=== PATIENT | female | born 1935 | race Caucasian/White ===

== ENCOUNTER 2019-10-04 15:14 | Inpatient (IN) | payer MEDICARE, OTHER ==
[~2019-10-04 15:14] MED LIST: Iopamidol-370 76% 500 ML 1 ML ONE
[2019-10-04 16:04] LABS: #Eosinphils 0.1 thou/uL (0.0-0.7); #Lymphocytes 1.5 thou/uL (1.20-3.40); #Monocytes 0.8 thou/uL (0.11-0.59); #Neutrophils 6.9 thou/uL (1.40-6.50); %Basophils 0.1 % (0.0-1.0); %Eosinophils 1.4 % (0.0-10.0); %Lymphocytes 15.6 % (21.0-51.0); %Monocytes 8.4 % (0.0-10.0); %Neutrophils 74.4 % (42.0-75.0); Hemoglobin 9.6 g/dL (12.0-16.0); Mean Corpuscular HGB CONC 31.7 g/dL (32.0-36.0); Mean Corpuscular Hemoglobin 32.1 pg (27.0-31.0); Mean Platelet Volume 6.2 fL (7.4-10.4); Platelet Count 405 thou/uL (130-400); RBC Distribution Width 16.7 % (11.5-14.5); White Blood Cell (WBC) Count 9.3 thou/uL (4.8-10.8)
[2019-10-04 16:14] LABS: INR-International Normal Ratio 11.6; PTT 128.5 sec (22.9-36.1)
[2019-10-04 16:18] LABS: Bilirubin Negative (Negative); Blood, Urine 1+ (Negative); Clarity Turbid (Clear); Glucose, Urine (Dipstick) Normal (Negative); Ketone, Urine Negative (Negative); Leukocyte 500 Leu/uL (Negative); Nitrite Negative (Negative); Protein, Urine (Dipstick) Negative (Neg-Trace); Squamous Epithelial None Seen HPF (0-3); WBC/HPF Greater than 50 HPF (0-3); pH, Urine 6.5 (5.0-9.0)
[2019-10-04 16:25] LABS: ALT (SGPT) 17 U/L (8-55); AST (SGOT) 26 U/L (5-34); Albumin 3.3 g/dL (3.4-4.8); Alkaline Phosphatase 123 U/L (40-110); Anion Gap 13 mmol/L (10-20); BUN (Urea Nitrogen) 13 mg/dL (9.8-20.1); Bilirubin, Total 1.3 mg/dL (0.2-1.2); Calc. Creatinine Clearance 0 mL/min (70-130); Calcium 9.3 mg/dL (7.8-10.44); Carbon Dioxide 27 mmol/L (23-31); Chloride 100 mmol/L (98-107); Estimated GFR-MDRD 71; Glucose 120 mg/dL (83-110); Potassium 3.6 mmol/L (3.5-5.1); Protein, Total 6.3 g/dL (6.0-8.3); Sodium 136 mmol/L (136-145)
[2019-10-04 16:27] LABS: Bacteria/HPF 2+ HPF (None Seen); Yeast-Budding 1+ HPF (None Seen)
[2019-10-04] MEDS ORDERED: Acetaminophen 325 MG TAB ONE (16:27)
[2019-10-04] MEDS ORDERED: Cefepime 2 GM VIAL ONE (16:27)
[2019-10-04] MEDS ORDERED: Vancomycin HCl 2.5 GM in Sodium Chloride 0.9% 500 ML IVPB ONE (16:30)
[2019-10-04] MEDS ORDERED: Acetaminophen 325 MG TAB PO SCH (16:30)
[2019-10-04] MEDS ORDERED: Cefepime 2 GM in Sodium Chloride 0.9% 100 ML IVPB SCH (16:30)
[2019-10-04] MEDS ORDERED: Phytonadione 10 MG/ML AMP PO SCH (16:30)
--- NOTE | 2019-10-04 17:47 | CT ---
EXAM: CTA Angio Aort Bilat Rnoff W PROVIDED CLINICAL HISTORY: Right lower extremity wound and pain. COMPARISON: None FINDINGS: CTA abdomen and pelvis: Median sternotomy wires are present. Postoperative changes related to aortic valve replacement are se en. The heart is mildly enlarged. Small right pleural effusion is present with associated passive atelectasis. Patchy parenchymal densities are seen at the left lung base which may represent atelecta sis as well. Limited evaluation of the abdomen due to patient's arms overlying the abdomen resulting in artifact. Postcholecystectomy changes are seen. The liver, spleen, pancreas, bilateral adrenal glands, and kidneys demonstrate a grossly normal CT ap pearance allowing for artifact. Gibbons catheter is present in the urinary bladder which is decompressed. Uterus has a grossly normal C T appearance for patient's age. The ascending colon is filled with gas and fluid and mildly distended. Small amount retained fecal ma terial seen throughout the remainder the colon with moderate amount retained fecal material seen in the rectum. There is presacral edema and inflammatory changes seen. This is overall nonspecific, but stercoral colitis cannot be entirely excluded. The abdominal aorta is normal in caliber without evidence of an aortic dissection. Diffuse atheroscle rotic vascular calcifications are seen involving the abdominal aorta and involving the iliac arteries. The iliac arteries are patent. There is suboptimal evaluation of the origins of the celiac and superior mesenteric arteries due to a rtifact in the upper abdomen and vascular calcifications at the origins of these vessels. However, the celiac artery does appear patent. There is suggestion of mild to moderate narrowing involving the origin and proximal superior mesenteric artery due to atherosclerotic plaque. The inferior mesenteric artery appears patent. There is suboptimal evaluation of the renal arteries again related to significant artifact and vascular calcifications. There is at least a mild degree of narrowing involving each proximal renal artery greater on the left. Left convex scoliosis thoracolumbar spine is present with multilevel degenerative changes noted. CT angiogram lower extremities with runoff: Right lower extremity: In the right gluteal region, there are lobulated mildly increased density areas seen with measurement of 6.7 cm craniocaudal x9.8 cm transverse x8.3 cm AP with interspersed regions of fat. This may be related to areas of hemorrhage/hematoma in this region. Correlation for recent trauma is suggested. A t the level of the knee joint and inferior to this region, there is plaque-like area of what is thought to be skin thickening and edema involving the right lateral and posterolateral aspect of the soft tissues at the level the knee joint and extending inferiorly. There also appears to be metallic densities laterally related to skin clips. The soft tissue thickening extends inferiorly to the level of the distal calf with a soft tissue wound with gas and lower density area seen at the level of the distal calf posterolaterally likely due to patient's known wound. The right common femoral, profunda femoral, and superficial femoral arteries are patent. There is thr ee-vessel runoff to the right lower extremity with dorsalis pedis artery as well as posterior tibial artery seen at the foot. Left lower extremity: The left common femoral, profunda femoral, superficial femoral, and popliteal arteries are patent. Th e entire left lower extremity is unable to be included in the field of view which limits evaluation of a portion of the most proximal anterior tibial artery. There are otherwise appears to be three-ves shai runoff to the left lower extremity. Mild subcutaneous edema is seen at the level of the distal calf and involving the foot. IMPRESSION: 1. Soft tissue defect/wound at the level of the posterolateral lower calf with soft tissue thickening and edema involving the right lateral and posterolateral right lower extremity again at the level of the knee joint and extending inferiorly to the calf. Findings are worrisome for infection. 2. Although there is incomplete visualization of a portion of the left anterior tibial artery, there is otherwise three-vessel runoff to the bilateral lower extremities. 3. Limited evaluation of the origin of the mesenteric vessels and renal arteries as described above d ue to artifact. 4. Small right pleural effusion and atelectasis with probable atelectasis left lung base. 5. Cardiomegaly. 6. Presacral edema and inflammatory changes with moderate amount retained fecal material seen in the rectum. Presacral inflammatory changes are overall nonspecific, but stercoral colitis cannot be excluded. 7. Lobulated areas of mild increased density right gluteal region which could be related to areas of hemorrhage. Correlation for recent injury/trauma is recommended.
[2019-10-04] MEDS ORDERED: Sodium Chloride 0.9% 1,000 ML IV SCH (19:57)
[2019-10-04] MEDS ORDERED: Acetaminophen 325 MG TAB PO PRN (19:57)
[2019-10-04] MEDS ORDERED: Furosemide 20 MG TAB PO SCH (21:15)
[2019-10-04] MEDS ORDERED: HumaLOG 300 UNITS/3 ML VIAL SC PRN (21:21)
[2019-10-04] MEDS ORDERED: Dextrose 5% in Water 1,000 ML IV PRN (21:21)
[2019-10-04] MEDS ORDERED: Dextrose 50% Abboject 50 ML SYRINGE SLOW IVP PRN (21:21)
[2019-10-04 23:00] VITALS: BMI 51.0
[2019-10-05] MEDS ORDERED: traZODone HCl 50 MG TAB PO SCH (01:15)
--- NOTE | 2019-10-05 02:37 | HP ---
CHIEF COMPLAINT: Bleeding from right lower extremity wound. HISTORY OF PRESENT ILLNESS: This patient is an 84-year-old female who has some dementia and is not able to give a clear history. Fortunately, there are some records in her chart that indicate that she has been at [facility] recently. The patient has a history of chronic atrial fibrillation and mechanical aortic valve and is on warfarin routinely. The patient apparently had some type of bleeding problem related to that right lower extremity with some type of hematoma. The general surgeons had some difficulty managing it and Vascular Surgery was called in and ultimately, she was taken for debridement. The plan apparently was to try to get her to rehab, but family took her home. It sounds like she has had some persistent oozing from this wound since she got home and she somehow got back to the emergency department today, and there was some concern for possible infection. It seems as though the patient might have had a syncopal episode and some traumatic injury to the right lower extremity that had originated all of this. It suggests that occurred while at our facility, but I do not currently find any records regarding an admission here. Nonetheless, the patient again is unable to give any significant additional history. PAST MEDICAL HISTORY: Notable for chronic atrial fibrillation, diabetes mellitus, hyperlipidemia, hypothyroidism, hypertension, mechanical aortic valve, morbid obesity, and possibly some hypoventilation of obesity syndrome. PAST SURGICAL HISTORY: Not known other than the surgery mentioned above for the right lower extremity and the aortic valve surgery. FAMILY HISTORY: The patient cannot recall any significant family history. SOCIAL HISTORY: Sounds like she tried cigarettes briefly at one point, otherwise a nonsmoker, nondrinker, and nondrug user. She is , sounds like she is living at home with family. CURRENT MEDICATIONS: Include: 1. Metformin 500 mg one p.o. daily. 2. Levothyroxine 100 mcg p.o. daily. 3. Lasix 20 mg daily. 4. Metoprolol ER 25 mg one p.o. daily. 5. Atorvastatin 80 mg one p.o. daily. 6. Warfarin dosing regimen varies daily, but is unclear in the notes. 7. Symbicort inhaler two inhalations b.i.d. 8. Tylenol p.r.n. 9. BuSpar 5 mg "as needed.". PHYSICAL EXAMINATION: VITAL SIGNS: Initially blood pressure 114/76, pulse 89, respirations 18, temperature is 98.6, and O2 saturation 95% on room air. GENERAL APPEARANCE: The patient is morbidly obese. She is very awake and alert and animated. HEENT: PERRL. No OP lesions. NECK: Supple and symmetric. HEART: Irregularly irregular with no murmurs, but there is a mechanical component noted. LUNGS: Clear to auscultation bilaterally with good chest wall expansion and air exchange. ABDOMEN: Soft, nontender, and nondistended. Positive bowel sounds. No masses. No organomegaly. EXTREMITIES: There is no significant cyanosis or clubbing. The right lower extremity has a large area on the posterolateral right calf that is oozing, dark old appearing blood onto a Chux pad persistently, but not in significant high volume. There are some general inflammatory changes with warmth associated with this. PSYCHIATRIC: The patient has animated affect, but otherwise normal behavior. NEUROLOGIC: No focal defects. The patient does appear to have some dementia. She did not recall meeting my medical student 20 minutes prior to revisiting her this evening. LABORATORY DATA: White count 9.3, hemoglobin 9.6, platelets 405. PT 88, INR 11.6, PTT 128.5. Sodium 136, potassium 3.6, chloride 100, CO2 of 27, BUN 13, creatinine 0.77, glucose 120, lactic acid 1.9. Total bilirubin 1.3, alkaline phosphatase 123, AST 26, ALT 17. Urinalysis is turbid with 1+ blood, 500 leukocytes, 11 to 20 red cells, greater than 50 white cells, bacteria and yeast are noted (of note, the patient does have chronic indwelling Gibbons catheter). A CTA of the aorta with runoff was performed in the emergency department that shows soft tissue defect in the right posterior lateral calf as noted on physical exam. There is some presacral edema and inflammatory changes with a moderate amount of fecal material in the rectum, could be some stercoral colitis and some lobulated areas of mild increased density in the right gluteal region, possibly representing some bruising or hematoma there. IMPRESSION AND PLAN: 1. Right lower extremity wound. The patient apparently had originally fallen, created a wound in this area that created some hematoma and bleeding, that could not easily be managed. Vascular Surgery was consulted and Dr. Knox performed a debridement of this area. Unfortunately, it continues to ooze, which is partially related to the patient's chronic anticoagulation, which is poorly controlled at this time. The vascular surgeon was consulted from the emergency department and will see the patient in the morning. In the meantime, we will try to reverse her anticoagulation to the degree that we can safely do so. It is unclear if this area is infected. She did receive antibiotics in the emergency department. It is hard to know if this is just some inflammatory changes due to the ongoing wound will take surgeries. Assessment in the morning determine whether we need to continue with ongoing antibiotics. She seems to be afebrile and she does not have leukocytosis. 2. Supratherapeutic INR. The patient is on a complex warfarin regimen. She is highly supratherapeutic, right now she did receive vitamin K in the emergency department. Other than oozing from this wound, she does not appear to have any evidence of significant bleeding; although, there is some evidence she may have had some hematomas in the right buttock on her scan. Because of her valve, I cannot safely entirely reverse her, so if she does get down subtherapeutic we would likely need to cover with some Lovenox, although at some point it may have to be drastically reduced in order to address this wound on her leg. 3. Diabetes mellitus. We will continue with her metformin. Continue Accu- Cheks. 4. Hypothyroidism. Continue with the levothyroxine. 5. Hyperlipidemia. Continue atorvastatin. 6. Bacteriuria. She has a Gibbons, but likely only because of the wound and general debility. She was able to walk in August, but has not been able to since. She has no fever and no leukocytosis. Addendum: I had a long conversation with the patient's daughter. She knows her mother has very clearly stated that she is DNR. That will be ordered. I also updated her on the situation. This will be a challenging situation given her debility, obesity, dementia and the need to continue with the anticoagulation. Answered all of her questions. She did confirm that her mother had been staying in a private retirement situation prior to this admission. Job ID: [id number] MTDD
[2019-10-05] MEDS ORDERED: Cefepime 2 GM in Sodium Chloride 0.9% 100 ML IVPB SCH (05:00)
[2019-10-05] MEDS: Levothyroxine Sodium 100 MCG TAB PO SCH (05:09)
[2019-10-05 05:57] LABS: #Eosinphils 0.2 thou/uL (0.0-0.7); #Lymphocytes 1.7 thou/uL (1.20-3.40); #Monocytes 0.7 thou/uL (0.11-0.59); #Neutrophils 5.4 thou/uL (1.40-6.50); %Basophils 0.2 % (0.0-1.0); %Eosinophils 2.2 % (0.0-10.0); %Monocytes 9.2 % (0.0-10.0); %Neutrophils 67.4 % (42.0-75.0); Hemoglobin 9.7 g/dL (12.0-16.0); Mean Corpuscular HGB CONC 30.3 g/dL (32.0-36.0); Mean Corpuscular Hemoglobin 30.6 pg (27.0-31.0); Mean Platelet Volume 6.4 fL (7.4-10.4); Platelet Count 410 thou/uL (130-400); Red Blood Cell (RBC) Count 3.18 mill/uL (4.20-5.40)
[2019-10-05] MEDS: Mometasone 200 MCG/Formoterol 5 MCG 120 PUFF INHALER INH SCH ×2 (07:16→19:32)
[2019-10-05] MEDS ORDERED: Succinylcholine Chloride 20 MG/ML 10 ml SYRINGE FS ONE (09:26)
[2019-10-05] MEDS ORDERED: PHENYLEPHRINE-NS 100 MCG/ML 10 ML SYRINGE ONE (09:26)
[2019-10-05] MEDS ORDERED: PROPOFOL 200 MG/20 ML VIAL ONE (09:26)
[2019-10-05] MEDS ORDERED: Lidocaine 1% PF 5 ML VIAL ONE (09:26)
[2019-10-05] MEDS: metFORMIN 500 MG TAB PO SCH (09:28)
[2019-10-05] MEDS: busPIRone HCl 5 MG TAB PO SCH ×2 (09:28→19:38)
[2019-10-05 10:15] LABS: INR-International Normal Ratio 3.9; Prothrombin Time 37.7 sec (12.0-14.7)
[2019-10-05 10:16] LABS: PTT 88.3 sec (22.9-36.1)
--- NOTE | 2019-10-05 12:54 | CON ---
DATE OF CONSULTATION: 10/05/2019 HISTORY OF PRESENT ILLNESS: Ms. Hernández was in at [facility] after a fall where she ended up on the floor and was found in a large pool of blood. She had a large hematoma subcutaneously in her right leg below the knee, which required debridement, evacuation of hematoma, and she had a compression bandage placed in the hospital. She would not consent to going back to a penitentiary facility; therefore, her family took her home and she re-presented through the emergency department last night with continued ooze from her leg. She had instructions at the time of discharge for her home health nurse to place a compression type dressing and wrap with an Stephen bandage. She arrived with no dressing on her leg and significant slough of her skin. She is going to need debridement of all of the necrosed skin and then subsequent wound VAC placement. I have discussed this with her and we will plan for surgery today. PAST MEDICAL HISTORY: 1. History of mechanical aortic valve replacement, on Coumadin. 2. Chronic atrial fibrillation. 3. Diabetes mellitus. 4. Dyslipidemia. 5. Hypothyroidism. 6. Hypertension. 7. Morbid obesity. SOCIAL HISTORY: She does not use tobacco. MEDICATIONS: Noted. ALLERGIES: LATEX. PHYSICAL EXAMINATION: GENERAL: This is a morbidly obese woman, resting on the medical unit. VITAL SIGNS: Temperature is 98.2, pulse is 87, blood pressure is 92/64. LUNGS: Clear bilaterally. HEART: Rhythm is irregularly irregular. ABDOMEN: Obese. EXTREMITIES: The right lower extremity is as above. LABORATORY DATA: Her hemoglobin is 9.7, platelet count is 410,000. Creatinine is 0.77, potassium 3.6. PT/INR is 11.6 at admission. ASSESSMENT AND PLAN: Large wound to the right lower extremity, which has been inadequately cared for at home. She will need debridement and subsequent wound VAC placement. She does need Coumadin with her valve, but I would not give her any Coumadin for the foreseeable future until her INR is corrected and we have a better handle on the wound. Job ID: [id number]
[2019-10-05] MEDS ORDERED: Ondansetron HCl/PF 4 MG/2 ML Vial IVP PRN (13:14)
[2019-10-05] MEDS ORDERED: Fentanyl 100 MCG/2 ML VIAL ONE (13:15)
--- NOTE | 2019-10-05 15:09 | PDOC.HOSPP ---
- Subjective Encounter Date: 10/05/19 Subjective: She was seen this morning. She was doing quite well. She was delighted to hear that she would be anesthetized for her surgery on her leg. Otherwise she had no major complaints other than she was hungry. - Objective Vital Signs & Weight: Vital Signs (12 hours) Temp Pulse Resp BP Pulse Ox 10/05/19 14:11 97.0 F L 97 18 136/82 93 L 10/05/19 08:00 94 L 10/05/19 07:43 98.2 F 87 20 92/64 94 L 10/05/19 07:16 79 16 97 10/05/19 05:46 98.1 F 91 20 107/75 95 Weight Admit Weight 306 lb 7.08 oz Weight 306 lb 7.08 oz I&O: 10/04/19 10/05/19 10/06/19 06:59 06:59 06:59 Intake Total 600 Output Total 550 Balance 50 Result Diagrams: 10/05/19 05:44 10/04/19 15:56 Additional Labs: Accuchecks 10/05/19 10/05/19 11:30 05:49 POC Glucose 130 H 141 H Hospitalist ROS - Medication Medications: Active Medications Generic Name Dose Route Start Last Admin Trade Name Freq PRN Reason Stop Dose Admin Buspirone HCl 5 mg 10/05/19 09:00 10/05/19 09:28 Buspar PO 5 mg BID SARTHAK Administration Levothyroxine Sodium 100 mcg 10/05/19 06:00 10/05/19 05:09 Synthroid PO 100 mcg 0600 SARTHAK Administration Metformin HCl 500 mg 10/05/19 08:00 10/05/19 09:28 Glucophage PO 500 mg QAM-WM SARTHAK Administration Metoprolol Succinate 25 mg 10/05/19 09:00 10/05/19 09:30 Toprol Xl PO 25 mg DAILY SARTHAK Administration Mometasone Furoate/Formoterol Fumar 2 puff 10/05/19 06:30 10/05/19 07:16 Dulera 200 Mcg/5 Mcg Inhaler INH 2 puff BID-RT SARTHAK Administration Sodium Chloride 10 ml 10/04/19 21:00 10/05/19 09:28 Flush - Normal Saline IVF 10 ml Q12HR SARTHAK Administration - Exam General Appearance: NAD, awake alert Heart: RRR, no murmur, no gallops, no rubs, normal peripheral pulses Respiratory: CTAB, no wheezes, no rales, no ronchi, normal chest expansion, no tachypnea, normal percussion Gastrointestinal: soft, non-tender, non-distended, normal bowel sounds, no palpable masses, no hepatomegaly, no splenomegaly, no bruit Extremities: no cyanosis, no clubbing Extremities - other findings: RLE with large area on the R post lat calf superficial slough. Less oozing Musculoskeletal: generalized weakness Psychiatric: normal affect, not oriented Hosp A/P (1) Wound of right leg Code(s): S81.801A - UNSPECIFIED OPEN WOUND, RIGHT LOWER LEG, INITIAL ENCOUNTER Status: Acute (2) Atrial fibrillation Code(s): I48.91 - UNSPECIFIED ATRIAL FIBRILLATION Status: Chronic (3) Status post mechanical aortic valve replacement Code(s): Z95.2 - PRESENCE OF PROSTHETIC HEART VALVE Status: Chronic (4) Morbid obesity Code(s): E66.01 - MORBID (SEVERE) OBESITY DUE TO EXCESS CALORIES Status: Chronic (5) Supratherapeutic INR Code(s): R79.1 - ABNORMAL COAGULATION PROFILE Status: Acute (6) Diabetes mellitus Code(s): E11.9 - TYPE 2 DIABETES MELLITUS WITHOUT COMPLICATIONS Status: Chronic Qualifiers: Diabetes mellitus type: type 2 (7) Hypothyroidism Code(s): E03.9 - HYPOTHYROIDISM, UNSPECIFIED Status: Chronic (8) Bacteriuria Code(s): R82.71 - BACTERIURIA Status: Acute - Plan Right leg wound: Discussed the case with Dr. Knox today. He was taken the patient to debride the area. Once it is debrided to apply a wound VAC. We agree there is no evidence of infection or need for antibiotics. Supratherapeutic INR: Patient received some vitamin D last night and her INR is down to 3.9. Will keep her off of warfarin until we have a more therapeutic INR or we get adequate clotting of the right lower extremity wound. Mechanical aortic valve: Patient does need to be on anticoagulation. However, currently we are facing a wound in her right leg that continues to ooze and therefore warfarin is currently being held. 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 Does not appear she has any bladder issues but mobility issues. Once we get her through the surgery and have the wound VAC in place will need to investigate the possibility of discontinuing the Gibbons. Do not suspect she has active infection. Suspect she is simply colonized. She has no fever or white count. Hypothyroidism: Continue home medications. Morbid obesity: Patient has challenges with mobility because of this. Dementia: Patient is typically pleasant. Had a bit of mild agitation last evening. Certainly complicates the wound care.
[2019-10-05] MEDS ORDERED: HYDROcodone/Acetaminophen 5/325 mg Tablet PO PRN (16:08)
[2019-10-05] MEDS ORDERED: Acetaminophen 325 MG TAB PO PRN (16:10)
[2019-10-05] MEDS: Atorvastatin Calcium 40 MG TAB PO SCH (19:38)
[2019-10-05] MEDS: HYDROcodone/Acetaminophen 5/325 mg Tablet PO PRN (19:38)
[2019-10-06] MEDS: Levothyroxine Sodium 100 MCG TAB PO SCH (05:38)
[2019-10-06] MEDS: busPIRone HCl 5 MG TAB PO SCH ×2 (08:41→20:17)
[2019-10-06] MEDS: metFORMIN 500 MG TAB PO SCH (08:41)
--- NOTE | 2019-10-06 14:02 | PDOC.HOSPP ---
- Subjective Encounter Date: 10/06/19 Subjective: Patient herself reports she is doing quite well today. She is pleased with how well she is doing considering she just had surgery. She has no other complaints. We discussed removing the Gibbons catheter and she is amenable to that. - Objective Vital Signs & Weight: Vital Signs (12 hours) Temp Pulse Resp BP Pulse Ox 10/06/19 12:00 97 F L 88 18 120/71 93 L 10/06/19 08:00 98 F 88 18 118/79 96 10/06/19 04:45 97.8 F 90 18 112/79 94 L Weight Admit Weight 306 lb 7.08 oz Weight 306 lb 7.08 oz I&O: 10/05/19 10/06/19 10/07/19 06:59 06:59 06:59 Intake Total 600 1780 Output Total 550 875 Balance 50 905 Result Diagrams: 10/05/19 05:44 10/04/19 15:56 Additional Labs: Accuchecks 10/06/19 10/06/19 10/05/19 11:39 05:02 20:33 POC Glucose 148 H 129 H 187 H 10/05/19 15:45 POC Glucose 178 H Hospitalist ROS - Medication Medications: Active Medications Generic Name Dose Route Start Last Admin Trade Name Freq PRN Reason Stop Dose Admin Acetaminophen 650 mg 10/05/19 16:10 10/06/19 05:40 Tylenol PO 650 mg Q6H PRN Administration Fever/Mild Pain (1-3) Hydrocodone Bitart/Acetaminophen 2 tab 10/05/19 16:08 10/05/19 19:38 [place] 5/325 PO 2 tab Q4H PRN Administration Severe Pain (7-10) Atorvastatin Calcium 80 mg 10/05/19 21:00 10/05/19 19:38 Lipitor PO 80 mg HS SARTHAK Administration Buspirone HCl 5 mg 10/05/19 09:00 10/06/19 08:41 Buspar PO 5 mg BID SRATHAK Administration Levothyroxine Sodium 100 mcg 10/05/19 06:00 10/06/19 05:38 Synthroid PO 100 mcg 0600 SARTHAK Administration Metformin HCl 500 mg 10/05/19 08:00 10/06/19 08:41 Glucophage PO 500 mg QAM-WM SARTHAK Administration Metoprolol Succinate 25 mg 10/05/19 09:00 10/06/19 08:41 Toprol Xl PO 25 mg DAILY SARTHAK Administration Mometasone Furoate/Formoterol Fumar 2 puff 10/05/19 06:30 10/05/19 19:32 Dulera 200 Mcg/5 Mcg Inhaler INH 2 puff BID-RT SARTHAK Administration Sodium Chloride 10 ml 10/04/19 21:00 10/06/19 08:42 Flush - Normal Saline IVF 10 ml Q12HR SARTHAK Administration - Exam General Appearance: NAD, awake alert General - other findings: Morbidly obese Eye: PERRL Heart: no murmur, no gallops, no rubs, normal peripheral pulses, irregular Respiratory: CTAB, no wheezes, no rales, no ronchi, normal chest expansion, no tachypnea, normal percussion Gastrointestinal: soft, non-tender, non-distended, normal bowel sounds, no palpable masses, no hepatomegaly, no splenomegaly, no bruit Extremities: no cyanosis, no clubbing, no edema Skin - other findings: R lateral calf with wound VAC. Dorsum of L hand with 2 x 4 cm scabbed area Musculoskeletal: normal tone, generalized weakness Psychiatric: normal affect, oriented to person Hosp A/P (1) Wound of right leg Code(s): S81.801A - UNSPECIFIED OPEN WOUND, RIGHT LOWER LEG, INITIAL ENCOUNTER Status: Acute (2) Atrial fibrillation Code(s): I48.91 - UNSPECIFIED ATRIAL FIBRILLATION Status: Chronic (3) Status post mechanical aortic valve replacement Code(s): Z95.2 - PRESENCE OF PROSTHETIC HEART VALVE Status: Chronic (4) Morbid obesity Code(s): E66.01 - MORBID (SEVERE) OBESITY DUE TO EXCESS CALORIES Status: Chronic (5) Supratherapeutic INR Code(s): R79.1 - ABNORMAL COAGULATION PROFILE Status: Acute (6) Diabetes mellitus Code(s): E11.9 - TYPE 2 DIABETES MELLITUS WITHOUT COMPLICATIONS Status: Chronic Qualifiers: Diabetes mellitus type: type 2 (7) Hypothyroidism Code(s): E03.9 - HYPOTHYROIDISM, UNSPECIFIED Status: Chronic (8) Bacteriuria Code(s): R82.71 - BACTERIURIA Status: Acute - Plan Right leg wound: Very much looks like this patient developed a significant hematoma initially. This was likely due to supratherapeutic INR. That area was debrided however it looks like it had likely necrosis from the pressure of the hematoma and subsequently dehisced. Yesterday she had surgery to debride the area. She now has a wound VAC in the area actually looks quite good. Challenge now will be to continue to provide care for the patient while this heals. We will also be holding off on anticoagulation until this can be stable. Supratherapeutic INR: Patient presented with a significantly elevated INR. She received vitamin D and it came down to 3.9 yesterday. We are holding her Coumadin for now. I will recheck her values tomorrow. Will likely need to be off of it for several days until we are certain that the leg wound is appropriate hemostasis. Mechanical aortic valve: Patient does need to be on anticoagulation. However, currently we are facing a wound in her right leg that continues to ooze and therefore warfarin is currently being held. 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 Does not appear she has any bladder issues but mobility issues. Now that she has been through the surgery and appears stable we will discontinue the Gibbons catheter in favor of a pure wick. Patient is amenable to that plan. Her urine culture is growing Pseudomonas but again, she is afebrile and had a normal white count with no evidence of active infection. I will discuss with ID in order to determine whether we need to treat this in light of her leg wound. Hypothyroidism: Continue home medications. Morbid obesity: Patient has challenges with mobility because of this. Dementia: Patient is typically pleasant. Certainly complicates the wound care. Disposition: Patient has had some challenges with this wound and her anticoagulation. Discussed with case management. We will try to pursue swing bed placement.
--- NOTE | 2019-10-06 14:31 | OP ---
DATE OF PROCEDURE: 10/05/2019 PREOPERATIVE DIAGNOSIS: Large wound to the right leg. POSTOPERATIVE DIAGNOSIS: 15 cm x 30 cm wound on the posterior right thigh with subcutaneous hematoma and necrotic skin. PROCEDURE: Incision and drainage with wound VAC placement. SURGEON: Edward Knox MD ANESTHESIA: General endotracheal-Dr. Lucas Gee. ESTIMATED BLOOD LOSS: Minimal. DESCRIPTION OF PROCEDURE: After consent was obtained from the daughter, the patient was brought to the operating room and placed in supine position on the operating table. Appropriate central line was placed. General endotracheal anesthesia was induced. Right leg was prepped and draped in usual sterile fashion. The leg was left in the fence on the operating room table for support and to be able to see behind her substantial girth of the leg. The leg had not had any dressings on it [facility] The Chux pad was removed. The skin over most of the wound had , but there was about 5 cm on each side that was undermined and harboring hematoma. The hematoma was evacuated. The wound was cleaned and the necrotic skin debrided. The wound was then copiously irrigated. The wound care team came and we placed a wound VAC over the area with good adherence. This will be a halfway wound VAC and our hopes are that the undermined areas will stick as a skin graft would stick and then a granulation bed that would accept the skin graft can be developed. The patient tolerated the procedure well and was awakened, extubated, and transferred to recovery room in stable condition. I have called the daughter, Bea Goddard, at completion and informed her of the findings. Job ID: [id number]
[2019-10-06] MEDS: Mometasone 200 MCG/Formoterol 5 MCG 120 PUFF INHALER INH SCH ×2 (14:59→19:00)
[2019-10-06] MEDS: HYDROcodone/Acetaminophen 5/325 mg Tablet PO PRN (16:43)
[2019-10-06] MEDS: Atorvastatin Calcium 40 MG TAB PO SCH (20:18)
[2019-10-07] MEDS: HYDROcodone/Acetaminophen 5/325 mg Tablet PO PRN ×3 (04:18→18:40)
[2019-10-07] MEDS: Levothyroxine Sodium 100 MCG TAB PO SCH (04:30)
--- NOTE | 2019-10-07 06:50 | PDOC.EVN ---
Event Note - Event Note Event Note: Reviewed the case with Dr. Weinberg, who agrees there is not indication to treat the urinary tract colonization.
[2019-10-07 06:56] LABS: INR-International Normal Ratio 3.2; Prothrombin Time 32.2 sec (12.0-14.7)
[2019-10-07 06:57] LABS: PTT 67.8 sec (22.9-36.1)
[2019-10-07] MEDS: Mometasone 200 MCG/Formoterol 5 MCG 120 PUFF INHALER INH SCH ×2 (08:21→18:59)
[2019-10-07] MEDS: metFORMIN 500 MG TAB PO SCH (08:53)
[2019-10-07] MEDS: busPIRone HCl 5 MG TAB PO SCH ×2 (08:53→21:04)
--- NOTE | 2019-10-07 16:40 | PDOC.HOSPP ---
- Subjective Encounter Date: 10/07/19 Encounter Time: 10:40 Subjective: pt states that she is ok now, left hand - she does not want any gauze around, and has r.. thigh blister - says no 'wrapping' quite a bit tangential talk [dementia] regarding which [facility] do i goto etc... - Objective Vital Signs & Weight: Vital Signs (12 hours) Temp Pulse Resp BP Pulse Ox 10/07/19 07:23 97.9 F 100 17 122/79 90 L Weight Admit Weight 306 lb 7.08 oz Weight 306 lb 7.08 oz I&O: 10/06/19 10/07/19 10/08/19 06:59 06:59 06:59 Intake Total 1780 1520 Output Total 875 2250 Balance 905 -730 Result Diagrams: 10/05/19 05:44 10/04/19 15:56 Additional Labs: Accuchecks 10/07/19 10/07/19 10/06/19 11:57 05:35 20:25 POC Glucose 135 H 153 H 141 H 10/06/19 16:36 POC Glucose 139 H Hospitalist ROS - Medication Medications: Active Medications Generic Name Dose Route Start Last Admin Trade Name Freq PRN Reason Stop Dose Admin Acetaminophen 650 mg 10/05/19 16:10 10/06/19 05:40 Tylenol PO 650 mg Q6H PRN Administration Fever/Mild Pain (1-3) Hydrocodone Bitart/Acetaminophen 2 tab 10/05/19 16:08 10/07/19 10:04 [place] 5/325 PO 2 tab Q4H PRN Administration Severe Pain (7-10) Atorvastatin Calcium 80 mg 10/05/19 21:00 10/06/19 20:18 Lipitor PO 80 mg HS SARTHAK Administration Buspirone HCl 5 mg 10/05/19 09:00 10/07/19 08:53 Buspar PO 5 mg BID SARTHAK Administration Levothyroxine Sodium 100 mcg 10/05/19 06:00 10/07/19 04:30 Synthroid PO 100 mcg 0600 SARTHAK Administration Metformin HCl 500 mg 10/05/19 08:00 10/07/19 08:53 Glucophage PO 500 mg QAM-WM SARTHAK Administration Metoprolol Succinate 25 mg 10/05/19 09:00 10/07/19 08:53 Toprol Xl PO 25 mg DAILY SARTHAK Administration Mometasone Furoate/Formoterol Fumar 2 puff 10/05/19 06:30 10/07/19 08:21 Dulera 200 Mcg/5 Mcg Inhaler INH 2 puff BID-RT SARTHAK Administration Sodium Chloride 10 ml 10/04/19 21:00 10/06/19 20:18 Flush - Normal Saline IVF 10 ml Q12HR SARTHAK Administration - Exam General Appearance: awake alert General - other findings: obese Eye: PERRL ENT: normocephalic atraumatic Neck: supple Heart: RRR Respiratory: CTAB, normal chest expansion Gastrointestinal: soft, normal bowel sounds Extremities - other findings: r. thigh-woundvac - blister/ecymoses,left hand - dry eschar. sacral ulcer. Hosp A/P - Plan (1) Wound of right leg Code(s): S81.801A - UNSPECIFIED OPEN WOUND, RIGHT LOWER LEG, INITIAL ENCOUNTER Status: Acute (2) Atrial fibrillation Code(s): I48.91 - UNSPECIFIED ATRIAL FIBRILLATION Status: Chronic (3) Status post mechanical aortic valve replacement Code(s): Z95.2 - PRESENCE OF PROSTHETIC HEART VALVE Status: Chronic (4) Morbid obesity Code(s): E66.01 - MORBID (SEVERE) OBESITY DUE TO EXCESS CALORIES Status: Chronic (5) Supratherapeutic INR Code(s): R79.1 - ABNORMAL COAGULATION PROFILE Status: Acute (6) Diabetes mellitus Code(s): E11.9 - TYPE 2 DIABETES MELLITUS WITHOUT COMPLICATIONS Status: Chronic Qualifiers: Diabetes mellitus type: type 2 (7) Hypothyroidism Code(s): E03.9 - HYPOTHYROIDISM, UNSPECIFIED Status: Chronic (8) Bacteriuria Code(s): R82.71 - BACTERIURIA Status: Acute - Plan Right leg wound: --post R. thigh wound --subc..hematoma -necrosis -s/p I & D and wound vac placed on - cw wound vare Supratherapeutic INR:----3.2 on --need [facility] -will fw w.. wound care on pawel leg wound. Mechanical aortic valve: Patient does need to be on anticoagulation. However, currently we are facing a wound in her right leg that continues to ooze and therefore warfarin is currently being held. 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 Morbid obesity: Patient has challenges with mobility Dementia: -stable -not on namenda or aricept DNAR
[2019-10-07] MEDS: Atorvastatin Calcium 40 MG TAB PO SCH (21:04)
[2019-10-08] MEDS: Levothyroxine Sodium 100 MCG TAB PO SCH (05:58)
[2019-10-08] MEDS: Mometasone 200 MCG/Formoterol 5 MCG 120 PUFF INHALER INH SCH ×2 (06:43→19:45)
[2019-10-08] MEDS: busPIRone HCl 5 MG TAB PO SCH ×2 (08:21→21:17)
[2019-10-08] MEDS: metFORMIN 500 MG TAB PO SCH (08:21)
[2019-10-08] MEDS: Lidocaine 4% Topical Sol 50 ML BOT TOP SCH (09:08)
[2019-10-08] MEDS: HYDROcodone/Acetaminophen 5/325 mg Tablet PO PRN ×3 (09:09→21:18)
[2019-10-08] MEDS ORDERED: Nystatin Powder 15 GM BOT TOP PRN (11:17)
--- NOTE | 2019-10-08 11:39 | PDOC.HOSPP ---
- Subjective Encounter Date: 10/08/19 Encounter Time: 12:00 Subjective: pt is screaming and wants her door not to be closed. talk to RN. received pain med this am, and it appears weaning off. pt in no distress. just confused and has tangential talk. - Objective Vital Signs & Weight: Vital Signs (12 hours) Temp Pulse Resp BP Pulse Ox 10/08/19 09:09 92 L 10/08/19 07:28 98.0 F 96 20 107/76 92 L Weight Admit Weight 306 lb 7.08 oz Weight 306 lb 7.08 oz I&O: 10/07/19 10/08/19 10/09/19 06:59 06:59 06:59 Intake Total 1520 1000 Output Total 2250 650 Balance -730 350 Result Diagrams: 10/05/19 05:44 10/04/19 15:56 Additional Labs: Accuchecks 10/08/19 10/08/19 10/07/19 11:27 05:19 19:45 POC Glucose 154 H 138 H 137 H 10/07/19 10/07/19 16:27 11:57 POC Glucose 116 H 135 H Hospitalist ROS - Medication Medications: Active Medications Generic Name Dose Route Start Last Admin Trade Name Freq PRN Reason Stop Dose Admin Acetaminophen 650 mg 10/05/19 16:10 10/06/19 05:40 Tylenol PO 650 mg Q6H PRN Administration Fever/Mild Pain (1-3) Hydrocodone Bitart/Acetaminophen 2 tab 10/05/19 16:08 10/08/19 09:09 [place] 5/325 PO 2 tab Q4H PRN Administration Severe Pain (7-10) Atorvastatin Calcium 80 mg 10/05/19 21:00 10/07/19 21:04 Lipitor PO 80 mg HS SARTHAK Administration Buspirone HCl 5 mg 10/05/19 09:00 10/08/19 08:21 Buspar PO 5 mg BID SARTHAK Administration Levothyroxine Sodium 100 mcg 10/05/19 06:00 10/08/19 05:58 Synthroid PO 100 mcg 0600 SARTHAK Administration Lidocaine HCl 0 ml 10/08/19 09:00 10/08/19 09:08 Xylocaine 4% Topical Marisela TOP Not Given DAILY SARTHAK Metformin HCl 500 mg 10/05/19 08:00 10/08/19 08:21 Glucophage PO 500 mg QAM-WM SARTHAK Administration Metoprolol Succinate 25 mg 10/05/19 09:00 10/08/19 08:21 Toprol Xl PO 25 mg DAILY SARTHAK Administration Mometasone Furoate/Formoterol Fumar 2 puff 10/05/19 06:30 10/08/19 06:43 Dulera 200 Mcg/5 Mcg Inhaler INH 2 puff BID-RT SARTHAK Administration Sodium Chloride 10 ml 10/04/19 21:00 10/08/19 08:21 Flush - Normal Saline IVF 10 ml Q12HR SARTHAK Administration - Exam General Appearance: NAD Eye: PERRL ENT: normocephalic atraumatic Neck: supple Heart: RRR, normal peripheral pulses Respiratory: CTAB, normal chest expansion Gastrointestinal: normal bowel sounds Neurological - other findings: confused Psychiatric: oriented to person Hosp A/P - Plan (1) Wound of right leg Code(s): S81.801A - UNSPECIFIED OPEN WOUND, RIGHT LOWER LEG, INITIAL ENCOUNTER Status: Acute (2) Atrial fibrillation Code(s): I48.91 - UNSPECIFIED ATRIAL FIBRILLATION Status: Chronic (3) Status post mechanical aortic valve replacement Code(s): Z95.2 - PRESENCE OF PROSTHETIC HEART VALVE Status: Chronic (4) Morbid obesity Code(s): E66.01 - MORBID (SEVERE) OBESITY DUE TO EXCESS CALORIES Status: Chronic (5) Supratherapeutic INR Code(s): R79.1 - ABNORMAL COAGULATION PROFILE Status: Acute (6) Diabetes mellitus Code(s): E11.9 - TYPE 2 DIABETES MELLITUS WITHOUT COMPLICATIONS Status: Chronic Qualifiers: Diabetes mellitus type: type 2 (7) Hypothyroidism Code(s): E03.9 - HYPOTHYROIDISM, UNSPECIFIED Status: Chronic (8) Bacteriuria Code(s): R82.71 - BACTERIURIA Status: Acute - Plan Right leg wound: --post R. thigh wound --subc..hematoma -necrosis -s/p I & D and wound vac placed on - wound vare Supratherapeutic INR:----3.2 on --need to start coumadin back given mech..ao..valve. -will fw w.. wound care on the leg wound. Mechanical aortic valve: Patient does need to be on anticoagulation. However, currently we are facing a wound in her right leg that continues to ooze and therefore warfarin is currently being held. 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 Morbid obesity: Patient has challenges with mobility Dementia: -stable -not on namenda or aricept -screaming and disoriented is part of dementia and she is at her baseline. plan to restart on coumadin when INR around 2.5 w.. initial dose of 5 and fw closely her INR it appears that INR shoots to high number whenever she is re-admitted and need to see the trend before rushing to send her to home. DNAR
[2019-10-08] MEDS: Atorvastatin Calcium 40 MG TAB PO SCH (21:17)
[2019-10-09] MEDS: Levothyroxine Sodium 100 MCG TAB PO SCH (05:12)
[2019-10-09] MEDS: HYDROcodone/Acetaminophen 5/325 mg Tablet PO PRN ×2 (05:13→11:56)
[2019-10-09 05:25] LABS: #Eosinphils 0.2 thou/uL (0.0-0.7); #Lymphocytes 1.6 thou/uL (1.20-3.40); #Monocytes 0.7 thou/uL (0.11-0.59); #Neutrophils 4.3 thou/uL (1.40-6.50); %Basophils 0.4 % (0.0-1.0); %Eosinophils 3.2 % (0.0-10.0); %Lymphocytes 23.4 % (21.0-51.0); Hemoglobin 9.7 g/dL (12.0-16.0); Mean Corpuscular HGB CONC 30.4 g/dL (32.0-36.0); Mean Corpuscular Hemoglobin 31.3 pg (27.0-31.0); Mean Platelet Volume 6.2 fL (7.4-10.4); Platelet Count 424 thou/uL (130-400); White Blood Cell (WBC) Count 6.8 thou/uL (4.8-10.8)
[2019-10-09 05:38] LABS: INR-International Normal Ratio 3.1; PTT 64.2 sec (22.9-36.1); Prothrombin Time 31.3 sec (12.0-14.7)
[2019-10-09] MEDS: Mometasone 200 MCG/Formoterol 5 MCG 120 PUFF INHALER INH SCH (07:32)
[2019-10-09] MEDS: metFORMIN 500 MG TAB PO SCH (08:23)
[2019-10-09] MEDS: busPIRone HCl 5 MG TAB PO SCH (08:23)
[2019-10-09] MEDS: Lidocaine 4% Topical Sol 50 ML BOT TOP SCH (09:16)
[2019-10-09 12:54] VITALS: BP 101/67; TEMP 98.1
--- NOTE | 2019-10-09 13:53 | PDOC.HOSPP ---
- Subjective Encounter Date: 10/09/19 Encounter Time: 12:00 Subjective: pt is talking to the staff, talk to RN, José and kathy to reach Dr. Knox x2. talk tot facility doctor who would accept her.Swing bed Rosita Schmitz at [phone] - Objective Vital Signs & Weight: Vital Signs (12 hours) Temp Pulse Resp BP Pulse Ox 10/09/19 12:53 98.1 F 94 20 101/67 93 L 10/09/19 08:20 95 10/09/19 08:07 97.8 F 70 20 100/63 95 Weight Admit Weight 306 lb 7.08 oz Weight 306 lb 7.08 oz I&O: 10/08/19 10/09/19 10/10/19 06:59 06:59 06:59 Intake Total 1000 1100 Output Total 650 800 Balance 350 300 Result Diagrams: 10/09/19 05:14 10/04/19 15:56 Additional Labs: Accuchecks 10/09/19 10/09/19 10/08/19 12:11 05:19 19:43 POC Glucose 165 H 129 H 126 H 10/08/19 16:47 POC Glucose 143 H Hospitalist ROS - Medication Medications: Active Medications Generic Name Dose Route Start Last Admin Trade Name Freq PRN Reason Stop Dose Admin Acetaminophen 650 mg 10/05/19 16:10 10/06/19 05:40 Tylenol PO 650 mg Q6H PRN Administration Fever/Mild Pain (1-3) Hydrocodone Bitart/Acetaminophen 2 tab 10/05/19 16:08 10/09/19 11:56 [place] 5/325 PO 2 tab Q4H PRN Administration Severe Pain (7-10) Atorvastatin Calcium 80 mg 10/05/19 21:00 10/08/19 21:17 Lipitor PO 80 mg HS SARTHAK Administration Buspirone HCl 5 mg 10/05/19 09:00 10/09/19 08:23 Buspar PO 5 mg BID SARTHAK Administration Insulin Human Lispro 0 units 10/04/19 21:21 10/08/19 12:55 Humalog SC 2 unit .MILD SLIDING SCALE PRN Administration Mild Correctional Scale Levothyroxine Sodium 100 mcg 10/05/19 06:00 10/09/19 05:12 Synthroid PO 100 mcg 0600 SARTHAK Administration Lidocaine HCl 0 ml 10/08/19 09:00 07/27/20 09:16 Xylocaine 4% Topical Marisela TOP Not Given DAILY SARTHAK Metformin HCl 500 mg 10/05/19 08:00 10/09/19 08:23 Glucophage PO 500 mg QAM-WM SARTHAK Administration Metoprolol Succinate 25 mg 10/05/19 09:00 10/09/19 08:37 Toprol Xl PO Not Given DAILY SARTHAK Mometasone Furoate/Formoterol Fumar 2 puff 10/05/19 06:30 10/09/19 07:32 Dulera 200 Mcg/5 Mcg Inhaler INH 2 puff BID-RT SARTHAK Administration Sodium Chloride 10 ml 10/04/19 21:00 10/09/19 08:24 Flush - Normal Saline IVF 10 ml Q12HR SARTHAK Administration - Exam General Appearance: NAD, awake alert Eye: PERRL ENT: normocephalic atraumatic Neck: supple Heart: RRR Respiratory: CTAB, normal chest expansion Gastrointestinal: soft, normal bowel sounds Neurological: cranial nerve grossly intact, no new deficit Psychiatric: normal affect, A&O x 3 Hosp A/P - Plan (1) Wound of right leg Code(s): S81.801A - UNSPECIFIED OPEN WOUND, RIGHT LOWER LEG, INITIAL ENCOUNTER Status: Acute (2) Atrial fibrillation Code(s): I48.91 - UNSPECIFIED ATRIAL FIBRILLATION Status: Chronic (3) Status post mechanical aortic valve replacement Code(s): Z95.2 - PRESENCE OF PROSTHETIC HEART VALVE Status: Chronic (4) Morbid obesity Code(s): E66.01 - MORBID (SEVERE) OBESITY DUE TO EXCESS CALORIES Status: Chronic (5) Supratherapeutic INR Code(s): R79.1 - ABNORMAL COAGULATION PROFILE Status: Acute (6) Diabetes mellitus Code(s): E11.9 - TYPE 2 DIABETES MELLITUS WITHOUT COMPLICATIONS Status: Chronic Qualifiers: Diabetes mellitus type: type 2 (7) Hypothyroidism Code(s): E03.9 - HYPOTHYROIDISM, UNSPECIFIED Status: Chronic (8) Bacteriuria Code(s): R82.71 - BACTERIURIA Status: Acute - Plan Right leg wound: --post R. thigh wound --subc..hematoma -necrosis -s/p I & D and wound vac placed on - wound vare Supratherapeutic INR:----3.2 on --need to start coumadin back given mech..ao..valve. -will fw w.. wound care on the leg wound. Mechanical aortic valve: Patient does need to be on anticoagulation. However, currently we are facing a wound in her right leg that continues to ooze and therefore warfarin is currently being held. 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 Morbid obesity: Patient has challenges with mobility Dementia: -stable -not on namenda or aricept -screaming and disoriented is part of dementia and she is at her baseline. plan to restart on coumadin when INR around 2.5 w.. initial dose of 5 and fw closely her INR it appears that INR shoots to high number whenever she is re-admitted and need to see the trend before rushing to send her to home. DNAR talk to the facility doctor who would accept her.Swing bed Dr. Becker at [phone] dc to swing bed today wound vac care x [address] Knox's office in 2 weeks for skin craft evaluation. INR Should be 2.5 before starting her on Coumadin Coumadin has to be started at 5 mg and daily INR has to be monitored as the tendency for her INR to shot up.
--- NOTE | 2019-10-10 07:02 | DIS ---
DATE OF ADMISSION: 10/04/2019 DATE OF DISCHARGE: 10/09/2019 DISCHARGE DIAGNOSES: 1. Right leg wound, status post I and D of subcu hematoma on the right thigh, mild necrosis on the right thigh. 2. Wound VAC placed on . 3. Supratherapeutic INR up to 12, that has been reversed and Coumadin is on hold and should be on hold until INR becomes 2.5 and then to be started at 5 mg daily. 4. Mechanical aortic valve. 5. 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 Does not require antibiotics, verified with Infectious Disease. 6. Hypothyroidism. 7. Morbid obesity. 8. Dementia. DISCHARGE MEDICATIONS: 1. Coumadin, discontinued. INR has to be checked daily. 2. BuSpar 5 mg as needed. 3. Symbicort one puff twice a day as needed. 4. Levothyroxine 100 mcg daily. 5. Lasix 20 mg daily. 6. Metformin 500 mg daily. 7. Lipitor 80 mg daily. 8. Toprol-XL 25 mg daily. PHYSICAL EXAMINATION: Please see my progress note. HOSPITAL COURSE: 84-year-old female admitted with right leg wound. She also had some small subacute hematoma as well as necrosis and status post I and D and wound VAC placed on . She came with supratherapeutic INR. Coumadin was on hold during this hospital stay. Currently her INR is 3.1. The instruction is to hold Coumadin until INR becomes 2.5 and then restart the Coumadin at 5 mg daily. This is checked with Vascular Surgery, Dr. Knox. Feels that right thigh hematoma would not get exacerbated with Coumadin use as long as INR is not supratherapeutic. The patient also has type 2 diabetes mellitus and continued with metformin. Mechanical aortic valve, reason why she needs to be on Coumadin again the target INR is about 2.5 before restarting Coumadin. Patient has chronic indwelling Gibbons catheter which had bacteriuria with Pseudomonas. Since she is afebrile, no elevated white count, she did not require antibiotic. Patient has dementia and sometimes she screams and has tangential talk which is at baseline. The patient is clinically sound enough to be discharged to the swing bed today. I talked to Dr. Edward Knox. She will have a clinic appointment in a [id number] with him. They will evaluate her for skin graft. Until then, wound VAC to be cared by investigative research specialist at the swing bed. I talked to Dr. Becker at [phone]. She will likely be transferred to swing bed today. DISCHARGE INSTRUCTION: Activity with supervision. Diabetic diet. Follow up with Dr. Edward Knox in 2 weeks' time. Instructions to swing bed, INR to be checked daily. Restart the Coumadin at 5 mg when INR is at and above 2.5. Discharge time took over 35 minutes. Job ID: [id number] MTDD
== END 2019-10-09 18:37 | disposition swing bed (61) | DRG 300 ==
LOC: ERS 15:14 → T4-B 18:11 → OBSVTOIN 18:11
PROVIDERS: ADMIT Internal Medicine; ATTEND Internal Medicine
PROC: 0JCL0ZZ Extirpation of Matter from Right Upper Leg Subcutaneous Tissue and Fascia, Open Approach (ICD-10-PCS; principal; 2019-10-05)
PROC: 0J9L00Z Drainage of Right Upper Leg Subcutaneous Tissue and Fascia with Drainage Device, Open Approach (ICD-10-PCS; 2019-10-05)
PROC: 0HDHXZZ Extraction of Right Upper Leg Skin, External Approach (ICD-10-PCS; 2019-10-05)
DX: E11.52 Type 2 diabetes mellitus with diabetic peripheral angiopathy with gangrene (principal); I96 Gangrene, not elsewhere classified; Z68.43 Body mass index [BMI] 50.0-59.9, adult; I48.20 Chronic atrial fibrillation, unspecified; Z66 Do not resuscitate; S70.11XA Contusion of right thigh, initial encounter; F03.90 Unspecified dementia, unspecified severity, without behavioral disturbance, psychotic disturbance, mood disturbance, and anxiety; R79.1 Abnormal coagulation profile; E66.01 Morbid (severe) obesity due to excess calories; E03.9 Hypothyroidism, unspecified; I48.91 Unspecified atrial fibrillation; I10 Essential (primary) hypertension; E78.5 Hyperlipidemia, unspecified; R82.71 Bacteriuria; W19.XXXA Unspecified fall, initial encounter; Z87.891 Personal history of nicotine dependence; Z79.899 Other long term (current) drug therapy; Z79.01 Long term (current) use of anticoagulants; Z95.2 Presence of prosthetic heart valve; Z79.890 Hormone replacement therapy; Z79.84 Long term (current) use of oral hypoglycemic drugs; Z79.51 Long term (current) use of inhaled steroids
CPT/HCPCS: 36415; 36416; 75635; 80053; 81003; 81015; 83605; 83735; 84443; 85025; 85610; 85730; 86850; 86900; 86901; 87040; 87077; 87086; 87186; 94760; 96365; 96367; J0690; J0692; J2704; J3010; J3370; J3430; J3490; J7030; Q9967

== ENCOUNTER 2019-11-02 14:35 | Inpatient (IN) | payer MEDICARE, OTHER ==
[2019-11-02] MEDS ORDERED: Fleet Enema 133 ML BOT FS ONE (15:30)
--- NOTE | 2019-11-02 15:42 | CT ---
CT ABDOMEN AND PELVIS WITH IV CONTRAST 11/02/2019 CLINICAL INFORMATION: Stool impaction. COMPARISON: CTA abdomen and pelvis on 10/04/2019 Technique: Multiple contiguous axial CT images are obtained through the abdomen and pelvis with IV contrast. Cor onal reformatted images are provided. FINDINGS: Lower Chest: Small right pleural effusion and associated passive atelectasis are again present. Atele ctasis is also again seen at the left lung base. There is evidence of prior aortic valve replacement. Calcification of the mitral valve annulus is present. The heart remains enlarged. Vessels: Vascular calcifications are seen in the abdominal aorta and involving the iliac arteries. Abdomen: Portal vein:Not well opacified. Gallbladder: Surgically absent. Liver: Limited evaluation as this study was obtained in arterial phase of imaging. Subcentimeter too small to characterize hypodense lesion is seen in the medial segment left hepatic lobe which is too small to characterize. Spleen: Within normal limits for arterial phase of imaging. Pancreas: within normal limits. Adrenals: within normal limits. Kidneys: Mild right hydronephrosis with caliectasis on the left. Bowel: Moderate to large amount retained fecal material seen throughout the colon greatest in the reg ion of the rectum with diameter of the rectum measuring 9.3 cm. Similar finding was seen on the prior exam. Presacral and minimal perirectal inflammatory stranding was seen on the prior exam which is not visualized on today's study. Loops of small bowel are normal in caliber. Appendix: The appendix is visualized and normal in caliber. Peritoneum: No ascites or free air; no fluid collection. Mesentery and Retroperitoneum: No enlarged mesenteric or retroperitoneal lymph nodes. Abdominal Wall: Tiny fat-containing umbilical hernia. Pelvis: Reproductive Organs: No pelvic masses. Bladder: Prominently distended. Superior aspect of the urinary bladder extends to near the level of t he umbilicus. Prominent distention of the urinary bladder may account for the mild right hydronephrosis and caliectasis on the left as this was not seen on prior exam, and the urinary bladde r was decompressed on prior study. Bones: Left convex scoliosis thoracolumbar spine with multilevel degenerative changes present. Bilate ral hip osteoarthritis is present. No suspicious lytic or sclerotic osseous lesions are identified. IMPRESSION: 1. Moderate to large amount of retained fecal material seen throughout the colon suggesting constipat ion. Largest amount retained fecal material is in the rectum. Inflammatory stranding in a presacral location adjacent the rectum on prior study is not seen on current exam. 2. Mild right hydronephrosis and caliectasis on the left which is likely attributable to prominent di stention of the urinary bladder. 3. Small right pleural effusion and atelectasis with atelectasis left lung base. 4. Additional findings as described above.
[2019-11-02 15:56] LABS: #Eosinphils 0.1 thou/uL (0.0-0.7); #Lymphocytes 1.9 thou/uL (1.20-3.40); #Monocytes 0.5 thou/uL (0.11-0.59); #Neutrophils 3.4 thou/uL (1.40-6.50); %Basophils 0.5 % (0.0-1.0); %Eosinophils 1.7 % (0.0-10.0); %Lymphocytes 31.4 % (21.0-51.0); %Monocytes 9.1 % (0.0-10.0); %Neutrophils 57.3 % (42.0-75.0); Hemoglobin 11.4 g/dL (12.0-16.0); Mean Corpuscular Hemoglobin 32.6 pg (27.0-31.0); Mean Platelet Volume 6.7 fL (7.4-10.4); Platelet Count 352 thou/uL (130-400); RBC Distribution Width 16.6 % (11.5-14.5); Red Blood Cell (RBC) Count 3.49 mill/uL (4.20-5.40); White Blood Cell (WBC) Count 5.9 thou/uL (4.8-10.8)
[2019-11-02 16:12] LABS: ALT (SGPT) 16 U/L (8-55); AST (SGOT) 34 U/L (5-34); Albumin 3.1 g/dL (3.4-4.8); Alkaline Phosphatase 104 U/L (40-110); Anion Gap 13 mmol/L (10-20); BUN (Urea Nitrogen) 10 mg/dL (9.8-20.1); Bilirubin, Total 0.6 mg/dL (0.2-1.2); Calc. Creatinine Clearance 0 mL/min (70-130); Calcium 8.9 mg/dL (7.8-10.44); Carbon Dioxide 28 mmol/L (23-31); Chloride 98 mmol/L (98-107); Estimated GFR-MDRD 64; Globulin 2.9 g/dL (2.4-3.5); Glucose 102 mg/dL (83-110); Lipase 17 U/L (8-78); Potassium 3.9 mmol/L (3.5-5.1); Sodium 135 mmol/L (136-145)
[2019-11-02] MEDS ORDERED: Ondansetron PF 4 MG/2 ML Vial IVP PRN (17:00)
[2019-11-02] MEDS ORDERED: Acetaminophen 325 MG TAB PO PRN (17:00)
[2019-11-02] MEDS ORDERED: Ondansetron ODT 4 MG TAB SL PRN (17:00)
[2019-11-02] MEDS ORDERED: Fentanyl 100 MCG/2 ML VIAL ONE (17:12)
[2019-11-02] MEDS ORDERED: Fentanyl 100 MCG/2 ML VIAL SLOW IVP PRN (17:15)
--- NOTE | 2019-11-02 18:04 | PDOC.HHP ---
Hospitalist HPI - History of Present Illness Abdominal pain History of Present Illness: 84 year old female patient with a history of Afib and mechanical aortic valves on coumodin presntes to the ED on account of severe colicky perianal pain. She was recently discharged after being managed for right leg wound with debridment. She notes having had constipation for serveral years however this has worsened in recent times but this is her first time having required bering brought to the hospital She denies any abdominal pain, nausea, or vomiting. also denies chest pain or palpitation At presentation she was in so much pain and screaming that she was giving 500mcg of fentanyl for pain relief. She had fleet enema and attempted disimpaction in the Ed however after the initial attempt, she stilll complained of pain and was thus sent for a CT scan of abdomen and pelvis which showed large amount of retained fecal material. At the time of my evaluation, pain had significantly subsided and she was in better spirit. [place] in the ED, Dr. Simon happened to be around and after looking at the scan pics recommended considering surgical consult instead of GI Hospitalist ROS - Review of Systems Constitutional: denies: fever, chills, weakness Eyes: reports: vision change Respiratory: denies: cough, shortness of breath, hemoptysis, SOB with excertion Cardiovascular: denies: chest pain, palpitations, orthopnea, paroxysmal noc. dyspnea Gastrointestinal: reports: constipation, other (Has intermitent colicky pain in perianal area). denies: nausea, vomiting, abdominal pain, diarrhea Genitourinary: denies: dysuria, frequency Musculoskeletal: denies: neck pain, shoulder pain, arm pain, back pain Neurological: denies: weakness, numbness, change in speech, confusion Hospitalist History - Past Medical History Cardiac: reports: AFIB, HTN Gastrointestinal: reports: Constipation Endocrine: reports: Diabetes (non insulin dependent), Hypothyroidism - Past Surgical History Past Surgical History: reports: Other (Aortic valve replacement) - Family History Family History: reports: Other (Noncontributory) - Social History Smoking Status: Never smoker - Exam General - other findings: Morbidly obese Hospitalist Results - Labs Result Diagrams: 11/04/19 06:21 11/04/19 06:21 Lab results: WBC 5.9 thou/uL (4.8-10.8) 11/02/19 15:38 Hgb 11.4 g/dL (12.0-16.0) L 11/02/19 15:38 Hct 35.6 % (36.0-47.0) L 11/02/19 15:38 MCV 102.0 fL (78.0-98.0) H 11/02/19 15:38 Plt Count 352 thou/uL (130-400) 11/02/19 15:38 Neutrophils % 57.3 % (42.0-75.0) 11/02/19 15:38 Sodium 135 mmol/L (136-145) L 11/02/19 15:38 Potassium 3.9 mmol/L (3.5-5.1) 11/02/19 15:38 Chloride 98 mmol/L (98-107) 11/02/19 15:38 Carbon Dioxide 28 mmol/L (23-31) 11/02/19 15:38 BUN 10 mg/dL (9.8-20.1) 11/02/19 15:38 Creatinine 0.84 mg/dL (0.6-1.1) 11/02/19 15:38 Glucose 102 mg/dL (83-110) 11/02/19 15:38 Calcium 8.9 mg/dL (7.8-10.44) 11/02/19 15:38 Total Bilirubin 0.6 mg/dL (0.2-1.2) 11/02/19 15:38 AST 34 U/L (5-34) 11/02/19 15:38 ALT 16 U/L (8-55) 11/02/19 15:38 Alkaline Phosphatase 104 U/L (40-110) 11/02/19 15:38 Serum Total Protein 6.0 g/dL (6.0-8.3) 11/02/19 15:38 Albumin 3.1 g/dL (3.4-4.8) L 11/02/19 15:38 Lipase 17 U/L (8-78) 11/02/19 15:38 Hospitalist H&P A/P - Plan Plan: 84 year old female with a history of rheumatic heart disease s/p mechanical aortic valve and recent I and D for right leg wound presents with severe colicky abdominal pain found on imaging to have extensive fecal impaction after an attempted manual dissipation in the ED 1. Fecal impaction received fleet enema and attempted disimpaction did not help We will try soap suds enema, magnesim citrate, sennosides/ducosate and lactulose Will observe for BM overnight. Brief discussion with GI Dr. Simon; he noted impaction is unlikely to resolve with GI intervention and recommended notifying surgeries Her urinary bladder is also full-will incert catheter as this might improve BM Observe overnight 2. Urinary retention Possibly due to constipation Place folley catheter 3. Mechanical aortic valve On coumododin-patient states she takes 2mg on tuesdays and . INR on 10/25/19 was 2.8. Will repeat INR today 4. Valvular Afib on coumodin will check INR 5. Right leg wound status post I and D on 10/04/[address] consult wound care
[2019-11-02 18:32] VITALS: BMI 46.8
[2019-11-02] MEDS ORDERED: Magnesium Citrate 300 ML BOT PO SCH (19:45)
[2019-11-02 20:20] LABS: Phosphorus 2.9 mg/dL (2.3-4.7)
[2019-11-02] MEDS: Senokot S 8.6-50 MG TAB PO SCH (20:29)
[2019-11-02 21:05] LABS: Prothrombin Time 42.7 sec (12.0-14.7)
[2019-11-02 21:06] LABS: PTT 66.5 sec (22.9-36.1)
[2019-11-02 21:09] LABS: INR-International Normal Ratio 4.5
[2019-11-03 05:35] LABS: #Eosinphils 0.1 thou/uL (0.0-0.7); #Monocytes 0.6 thou/uL (0.11-0.59); #Neutrophils 2.9 thou/uL (1.40-6.50); %Basophils 0.7 % (0.0-1.0); %Eosinophils 2.5 % (0.0-10.0); %Lymphocytes 35.1 % (21.0-51.0); %Monocytes 10.8 % (0.0-10.0); %Neutrophils 50.8 % (42.0-75.0); Hemoglobin 11.4 g/dL (12.0-16.0); Mean Corpuscular HGB CONC 31.1 g/dL (32.0-36.0); Mean Corpuscular Hemoglobin 31.6 pg (27.0-31.0); Mean Platelet Volume 6.5 fL (7.4-10.4); Platelet Count 349 thou/uL (130-400); RBC Distribution Width 16.6 % (11.5-14.5); Red Blood Cell (RBC) Count 3.62 mill/uL (4.20-5.40); White Blood Cell (WBC) Count 5.6 thou/uL (4.8-10.8)
[2019-11-03 05:41] LABS: PTT 69.6 sec (22.9-36.1); Prothrombin Time 39.6 sec (12.0-14.7)
[2019-11-03 05:46] LABS: INR-International Normal Ratio 4.1
[2019-11-03 05:56] LABS: Anion Gap 13 mmol/L (10-20); BUN (Urea Nitrogen) 9 mg/dL (9.8-20.1); Calc. Creatinine Clearance 116 mL/min (70-130); Calcium 9.2 mg/dL (7.8-10.44); Carbon Dioxide 29 mmol/L (23-31); Chloride 99 mmol/L (98-107); Estimated GFR-MDRD 75; Glucose 111 mg/dL (83-110); Potassium 3.6 mmol/L (3.5-5.1); Sodium 137 mmol/L (136-145)
[2019-11-03] MEDS: Senokot S 8.6-50 MG TAB PO SCH ×2 (09:17→22:08)
[2019-11-03] MEDS ORDERED: Dextrose 5% in Water 1,000 ML IV PRN (10:31)
[2019-11-03] MEDS ORDERED: Dextrose 50% Abboject 50 ML SYRINGE SLOW IVP PRN (10:31)
[2019-11-03] MEDS ORDERED: Magnesium Citrate 300 ML BOT PO SCH (11:00)
[2019-11-03 11:26] LABS: Hemoglobin A1c 4.8 % (4.0-6.0)
--- NOTE | 2019-11-03 12:48 | PDOC.HOSPP ---
- Subjective Encounter Date: 11/03/19 Encounter Time: 12:44 Subjective: Patient was seen and examined in bed. She denied any abdominal or perianal pain during the night however she did not pass any stool. She denies any chest pain or shortness of breath - Objective Vital Signs & Weight: Vital Signs (12 hours) Temp Pulse Resp BP BP Pulse Ox 11/03/19 08:00 98.2 F 95 18 121/78 93 L 11/03/19 04:17 97.7 F 81 18 121/85 93 L 11/03/19 00:50 98 F 90 18 108/65 92 L Weight Admit Weight 290 lb 8 oz Weight 290 lb 8 oz Result Diagrams: 11/03/19 05:22 11/03/19 05:22 Additional Labs: Accuchecks 11/03/19 11/03/19 11/02/19 11:40 06:44 19:49 POC Glucose 115 H 115 H 142 H Hospitalist ROS - Review of Systems Constitutional: denies: fever, chills, weakness Eyes: reports: vision change Respiratory: denies: cough, shortness of breath, SOB with excertion Cardiovascular: denies: chest pain, palpitations, orthopnea, paroxysmal noc. dyspnea Gastrointestinal: reports: constipation. denies: nausea, vomiting, abdominal pain, diarrhea Genitourinary: denies: dysuria, frequency Neurological: denies: weakness, numbness, change in speech - Medication Medications: Active Medications Generic Name Dose Route Start Last Admin Trade Name Freq PRN Reason Stop Dose Admin Lactulose 10 gm 11/02/19 21:00 11/03/19 09:17 Lactulose PO 10 gm TID SARTHAK Administration Senna/Docusate Sodium 2 tab 11/02/19 21:00 11/03/19 09:17 Senokot S PO 2 tab BID SARTHAK Administration - Exam ENT: negative: normocephalic atraumatic, no oropharyngeal lesions, moist mucosa Neck: negative: supple, no thyromegaly Heart: RRR, no murmur (Mechanical heart sound), no gallops, no rubs Respiratory: no wheezes, no rales, no ronchi Gastrointestinal: soft, non-tender Gastrointestinal - other findings: Increased bowel sounds Extremities: 1+ LE edema (Right lower limb wound dressed) Hosp A/P - Plan This is an 84-year-old female with a history of diabetes mellitus, mechanical aortic valve on Coumadin, atrial fibrillation who was recently admitted and discharged on account of right leg wound. She was admitted a day ago on account of abdominal and perianal pain secondary to fecal impaction. She has been refusing some recommended treatment however conservative management has been started but may require surgical intervention if remains unresolved. Fecal impaction Secondary to chronic constipation. Has a history of hypothyroidism-last TSH was 1.47 on 10/11/2019 No bowel movements overnight She did not receive soapsuds enema as she refuses toGI also does not recommend soapsudsshe will receive mineral oil enema. Kept n.p.o. overnight in case it was going to be any procedure however her INR remains supratherapeutic about 4. Next So far she has received sennosides/docusate, lactulose and 300 mils of magnesium citrate We will continue monitoring Surgery and GI following. . Urinary retention Unclear etiology may be secondary to fecal impaction Bladder scan - 650 mils Patient refusing catheterization Will try convincing her for catheterization and assess for spontaneous voiding. May consider urology evaluation if retention remains persistent. This may probably resolve if eventual disimpaction Continue monitor. Mechanical aortic valve. She has been on Coumadin however so unclear what dose she takes. Request for external records placed from PCP. INR is however supratherapeutic at 4.1 from 4.5 a day ago. We will hold anticoagulation Pharmacy will follow and monitor Target INR2-3 Supratherapeutic INR INR at 4.1 today Holding warfarin Pharmacy following.Target INR 2-3 Atrial fibrillation Continue anticoagulation Right leg wound Status post I&D 10/05/19 Wound care team on board Diabetes mellitus No A1c on filewe will check Blood sugars however within reasonable range. Correctional insulin started Patient noncompliance Patient refusing some recommended treatment and said at one time to the nurse that she wanted to lie there and . Overall does not appear depressed per general rowdy She may be irritable from the ongoing constipation and impaction Behavioral consult palliative care to help in symptom and goals of care management Safety VTE prophylaxis: Therapeutic on Coumadin CODE STATUS: Full code. Diet: Diabetic diet
[2019-11-03 13:54] LABS: SARS-CoV-2 MS2 Positive; SARS-CoV-2 N Gene Negative; SARS-CoV-2 S Gene Negative; SARS-CoV-2 by NAA Not Detected (NotDetected); SARS-CoV-2 orf1ab Negative
--- NOTE | 2019-11-03 17:22 | CON ---
DATE OF CONSULTATION: 11/03/2019 HISTORY OF PRESENT ILLNESS: The patient is an 84-year-old female, essentially bedridden, who lives at home, has caregivers who help her. She states she cannot walk essentially and requires assistance to get out of bed and move. She is morbidly obese, 46 BMI, height 5 feet 6 inches, and weight 290 pounds. She called EMS because she could not have a bowel movement. She was seen in the emergency room and noted to have a white count of 5, hemoglobin 11.4, and INR 4.1. Basic metabolic profile essentially normal. Hemoglobin A1c was 4.8. The patient reports diabetes. She has poor mobility. CAT scan of abdomen and pelvis revealing severe constipation with a large fecal impaction. The patient has not had any rectal bleeding. She is admitted to the hospitalist service. When I entered the room, by the time I am seeing her, she is complaining of not being able to eat, it is 9:30 in the morning. She is cursing and complaining about all of her care. Wound care team is present to dress a calf wound that Dr. Knox had drained an old hematoma from her previous fall. This is granulating and healthy and extends to the posterior aspect of her lower leg, almost the full length. There is no infection. She has a urinary control. She, in the left lateral decubitus position, has some stool around the anus. I performed a rectal exam and there was abundant amount of stool in the rectal vault, it is soft, it is not firm, I disimpacted as much as I could. She did not tolerate this well. ALLERGIES: LATEX. SOCIAL HISTORY: Tobacco, none. Alcohol, none. MEDICATIONS: 1. Furosemide. 2. Symbicort. 3. Atorvastatin. 4. Metformin. 5. Buspirone. 6. Levothyroxine. 7. Metoprolol. 8. She is on Coumadin. PAST SURGICAL HISTORY: 1. Dr. Edward Knox on 10/05/2019 evacuated hematoma from the right leg, evacuating necrotic skin and wound VAC applied, which they are treating that for. 2. Aortic valve replacement, on Coumadin. PAST MEDICAL HISTORY: 1. AFib. 2. Prosthetic aortic valve. 3. Chronic anticoagulation therapy. 4. Hypertension. 5. Hypothyroidism. 6. Hyperlipidemia. 7. Morbid obesity. 8. Poor mobility. 9. Full code. PHYSICAL EXAMINATION: VITAL SIGNS: Height 5 feet 6 inches, weight 290 pounds, and 46 BMI. Temperature 98.2 and blood pressure 121/78. LUNGS: Clear to auscultation. CARDIAC: Irregularly irregular. Prosthetic aortic valve click. ABDOMEN: Soft, obese, and nontender. EXTREMITIES: Wound as described above in the calf. RECTAL: As described above. ASSESSMENT AND PLAN: 1. Fecal impaction. 2. Constipation. 3. Poor mobility. Would recommend enemas and laxatives as indicated. This is soft stool, should be evacuated with local bowel care. Further surgical followup is not warranted and I will see her as needed. Would advise consulting GI for control of her chronic constipation. Job ID: [id number]
[2019-11-03] MEDS: Polyethylene Glycol 3350 17 GM Packet PO SCH ×2 (17:33→22:08)
[2019-11-03] MEDS ORDERED: Lidocaine 2% Jelly 5 ML TUBE TOP SCH (22:45)
[2019-11-03] MEDS ORDERED: Haloperidol Lactate 5 MG/ML VIAL SLOW IVP SCH (22:45)
--- NOTE | 2019-11-04 02:48 | CON ---
DATE OF CONSULTATION: 11/03/2019 REASON FOR CONSULTATION: Stercoral colitis, fecal impaction, chronic constipation. CONSULTING PROVIDER: Dr. Ryan Jurado. Dr. Dawit Clark. HISTORY OF PRESENT ILLNESS: The patient is an 84-year-old female, with past medical history of atrial fibrillation, mechanical aortic valves, chronic constipation, hypertension, and hypothyroidism, who initially presented to the hospital with increased abdominal/rectal pain and complaints of constipation. The patient was recently discharged from the hospital after management of a right leg wound with debridement (and it is unclear she received narcotics during that hospitalization), but she returned to the ER for evaluation of increased abdominal pain. She states that she was having increased suprapubic abdominal pain characterized as a cramping type sensation, would radiate to the entire generalized abdomen, was constant with waxing/waning severity, and reached a severity of 9/10. This abdominal pain was also in association with increased constipation with the patient had not had a bowel movement for approximately 4 to 5 days. She also endorsed increased tenesmus type symptoms where she felt the sensation to have a bowel movement, but was able to actually do so. While in the ER, she had a CT scan that showed a significant amount of retained fecal material extending up throughout the entire colon. As such, she underwent fecal disimpaction at bedside, in the ER, but was unable to tolerate the maneuver with significant pain requiring administration of fentanyl for pain relief. Enemas were also attempted, but again had minimal effect on the patient due primarily to patient compliance to the prescribed therapies thus far, so she was subsequently admitted to the hospital for further evaluation. She was evaluated by the General Surgery Service earlier on today who also attempted fecal disimpaction at bedside, but again the patient could not tolerate it with soft stool filled within the rectal vault. At this time, the patient was prescribed magnesium citrate in addition to MiraLAX and enemas, but she has been reluctant to comply with any of these maneuvers thus far due to the increased abdominal pain that she is currently experiencing and the abdominal pain that she experienced with therapies thus far. At the current point in time, the patient has been very obstinate with any sort of direction and it was unclear if the patient does not understand what the benefits of therapeutic intervention are or if she is just refusing therapy to be stubborn. However, at the current point in time, she does continue to have her abdominal pain in addition to increased rectal pain secondary to the constipation and recent instrumentation/disimpaction. Otherwise, she denies any nausea, vomiting, fevers, chills, hematemesis, melena, hematochezia, dysphagia, or odynophagia. REVIEW OF SYSTEMS: A 10-category review of systems was obtained with all responses negative, except for the pertinent positives as listed in the HPI. PAST MEDICAL HISTORY: As per HPI. PAST SURGICAL HISTORY: Evacuation of a hematoma from the right leg as well as wound debridement of necrotic skin and wound VAC application of the right lower extremity, aortic valve replacement with mechanical valve, on chronic Coumadin. FAMILY HISTORY: Denies any GI malignancies. SOCIAL HISTORY: No mention of tobacco, alcohol, or illicit drug. OUTPATIENT MEDICATIONS: Reviewed. ALLERGIES: LATEX. PHYSICAL EXAMINATION: VITAL SIGNS: Temperature 98.2, pulse 95, blood pressure 121/78, respiratory rate 18, and saturating 93% on room air. GENERAL: The patient was lying in bed, in mild distress. Alert and oriented x3. Morbidly obese body habitus. HEENT: Normocephalic and atraumatic. NECK: Supple. No JVD or scleral icterus noted. CARDIOVASCULAR: Irregularly irregular rhythm with a loud aortic valve click secondary to mechanical valve. RESPIRATORY: Clear to auscultation bilaterally with no discernible wheezes or rales, although difficult to auscultate due to the patient's body habitus. ABDOMEN: Normoactive bowel sounds. Soft, nondistended, although obese abdomen. Tenderness to palpation in all abdominal quadrants. EXTREMITIES: No cyanosis, clubbing, or edema of the left lower extremity, but wound VAC seen on the right lower extremity. RECTAL EXAM: Deferred at this time due to the patient's reluctance to proceed. LABORATORY DATA: CBC with a white blood cell count of 5.6, hemoglobin 11.4, hematocrit 36.8, and platelets 349. INR 4.1. Chemistry with a sodium of 137, potassium 3.6, chloride 99, CO2 of 29, BUN 9, creatinine 0.74, glucose 111, AST 34, ALT 16, and alkaline phosphatase 104. Total bilirubin 0.6. IMAGING DATA: CT of the abdomen and pelvis was obtained on November 02, 2019, which showed small right pleural effusion and associated passive atelectasis again present, calcification of mitral valve anulus was also present with cardiomegaly seen during this exam. The gallbladder was surgically absent, but there were some hypodense lesion seen in the medial segment of the left hepatic lobe, too small to characterize. However, within the bowel and [id number] amount of retained fecal material was seen throughout the colon, greatest in the region of the rectum with the diameter of the rectum measuring 9.3 cm. This was similar to seen on the prior examination. Presacral and minimal perirectal inflammatory stranding was seen on the prior exam, but was not visualized on today's study to indicate active stercoral colitis. Her bladder was also prominently distended with the superior aspect of the urinary bladder extending at the level of the umbilicus and resulting in mild right hydronephrosis and caliectasis on the left that was not seen on the prior examination. ASSESSMENT AND PLAN: The patient is an 84-year-old female, with past medical history of atrial fibrillation, mechanical aortic valve, on chronic anticoagulation; hypertension; hypothyroidism; hyperlipidemia; morbid obesity; and chronic constipation, presenting with fecal impaction. 1. Fecal impaction. The patient is presenting with fairly acute onset of increased abdominal/perirectal pain that has been present for the last 4 to 5 days where the patient has not been able to have a bowel movement. On imaging of the patient with CT abdomen and pelvis, there was a large amount of retained stool seen throughout the entire colon with dilation of the colon up to 9.3 cm in size. However, upon evaluation during this imaging, it was noted that this was similar to on previous exam indicating that this is a very chronic process and that with chronic dilation of her colon, it may no longer be functional to the point where it can contract and expel stool effectively. However, during this admission, there was no evidence of stercoral colitis when compared to the previous exam as well. At the current time, she has been fecally disimpacted with manual disimpaction on 2 separate occasions, but could not tolerate much of the procedure due to increased rectal pain. She has also been very reluctant/obstinate to comply with current medical management of her constipation. RECOMMENDATIONS: 1. Would administer a mineral oil enema x1 today in order to break apart any solid stool plugs that may prevent the passage of stool from below. An additional mineral enema could be given tonight as well to facilitate passage. 2. Agree with administering approximately one cap full MiraLAX three times daily. 3. I would agree with administration of magnesium citrate in order to help facilitate having a bowel movement. 4. We would avoid lactulose as a laxative given that it is a synthetic sugar and is metabolized by bacterial abdelrahman and generates increased abdominal pressure via gas formation. 5. We would recommend urinary catheterization to decompress the bladder that is most likely distended due to chronic constipation. 6. If the patient is unable to comply with the above measures, we could consider endoscopic evaluation with fecal disimpaction that way, but this would be used as a last resort given the effectiveness of this modality for fecal impaction (it is highly ineffective). 7. If the patient does not respond to any of the above therapies, then she may require sedation and taken to the OR for disimpaction under anesthesia. We will continue to follow. Please call with any questions. Job ID: [id number]
--- NOTE | 2019-11-04 03:56 | CON ---
DATE OF CONSULTATION: 11/03/2019 REASON FOR CONSULTATION: Concern for urinary retention. HISTORY OF PRESENT ILLNESS: Ms. Ifrah Hernández is an 84-year-old white female, who presented due to shauna-anorectal pain and presented to the emergency department on 11/02/2019. Patient has a lifelong history of contact with the medical system secondary to a mechanical aortic heart valve and her history of atrial fibrillation. She is on Coumadin for management of her anticoagulation needs. Patient has apparent impaction with large amount of stool seen on CT scanning and does have relatively full bladder on that CT scan. Patient has complaints of lower abdominal discomfort, which seemed disproportionate to findings and I was consulted to evaluate the patient for possibility of urinary retention. Bladder scans are showing about 1000 mL in the patient's bladder. MEDICATION HISTORY: As an outpatient, the patient is on 1. Metoprolol 25 mg p.o. daily. 2. Lipitor 80 mg p.o. daily. 3. Levothyroxine 100 mcg p.o. daily. 4. Metformin 500 mg p.o. daily. 5. Oral Lasix at 20 mg p.o. daily. 6. Warfarin 1 mg p.o. daily. 7. Symbicort 160 mcg/4.5 mcg actuation inhalation. ALLERGIES: SHE IS ALLERGIC TO LATEX AND NATURAL RUBBER. MEDICAL HISTORY: 1. Atrial fibrillation. 2. Mechanical aortic valve. 3. Constipation. 4. Decubitus ulcers of the legs. 5. Morbid obesity, CDC class 3. 6. Diabetes mellitus. 7. Hypothyroidism. PAST SURGICAL HISTORY: 1. Recent debridement of the patient's right leg. No past history of genitourinary surgery. 2. Mechanical heart valve replacement. PHYSICAL EXAMINATION: GENERAL: This is an elderly white female. She screams, requesting narcotic pain medications. Apparently, had this behavior in the emergency room yesterday, so little has changed there. She reports pain pretty much everywhere on the lower abdomen, suprapubically, in the vaginal area, and also in the area of her decubitus and her bilateral lower extremities. The pain distribution is peculiar and suggests a neuropathic process. HEAD, EYES, EARS, NOSE, AND THROAT: Extraocular movements are intact. Sclerae are anicteric. Oropharynx is clear. NECK: Supple. LUNGS: Clear to auscultation bilaterally. CARDIAC: There is an irregularly irregular rhythm with mechanical valve sound. ABDOMEN: Soft, obese, and nontender. Patient reports some tenderness in the abdomen about the level of the umbilicus and below pretty much all of her bilateral lower extremities. She reports shooting pains all over her lower abdomen. The pain complaints seem disproportionate to any findings as there is no evidence of necrosis of skin anteriorly. There is no evidence of purulent organisms or necrotic skin present. Bilateral lower extremities are notable for debrided area with a wound VAC present on the right lower extremity. The decubitus area is dressed. PELVIC EXAMINATION: Performed in the presence of the patient's nurse. Pelvic examination with the speculum finds the patient's urethra more proximally. She has large amount of adipose tissue and was apparently lost a fair amount of weight over time, so her adipose tissue includes a pannus and mons pubis pannus. Retraction of the mons pubis defines the patient's genital tissue with postmenopausal atrophic vaginitis type changes. Urethra is midline and proximally located. Speculum examination performed with a speculum light. An 18-Nepalese Gibbons catheter was placed after sterile prep with Betadine. The patient's catheter immediately returned urine which was relatively dark in color, suggesting a degree of dehydration. The patient's bladder drained a total of 500 mL suggesting the patient was not really in urinary retention at the time of evaluation. Patient's catheter was silicone catheter, was secured to her right leg with a StatLock device. LABORATORIES: CBC shows no evidence of elevation of the patient's white blood cell count. Admission CBC and CBC today show a white blood cell count of 5.9 and now 5600. Admission hemoglobin was 11.4 with hematocrit of 35.6. There is no evidence of left shift. Anticoagulation levels appeared to be appropriate with a current INR of , now 4.1, possibly slightly super anticoagulated. Serum chemistries show a blood urea nitrogen of 9, which is relatively low, consistent with the patient's low protein body mass. Creatinine is 0.74, also relatively low. Estimated glomerular filtration rate using MDRD method suggests a clearance of 75. Serum glucose at admission was 142, decreased to 111 this morning and remains in the one teens during the day today, consistent with glucose intolerance or diabetes mellitus, type 2. Radiologic studies. A CT scan of the abdomen and pelvis obtained at admission on 11/02/2019 showed impacted stool, also relatively small kidneys in proportion of the patient's overall body size. In addition, no evidence of hydronephrosis or hydroureter. In addition, a moderately full bladder was observed at that point. ASSESSMENT AND PLAN: 1. Pain symptoms disproportionate to findings. This always is a tricky area, however, the patient's findings in absence of elevated white count suggest there is no evidence of a Bony's type process in this patient. I do not find any abnormal genitourinary findings. I think in this patient's case, there is no actual neuropathic problem or possibly narcotic use problem at home. Patient is requesting pain medications and histrionic displays appeared to be disproportionate to clinical findings. 2. Concern for urinary retention. Patient does not appear to be in urinary retention and urine obtained from the patient's bladder was only in the range of 500 mL. She does have relatively concentrated urine and some of her bladder discomfort could possibly come from infection or even concentrated urine itself. Recommending a urinalysis be performed and culture. 3. Constipation. This patient probably would benefit from disimpaction based on the patient's behavior with simple evaluation and simple catheter placement which she requested appeared to be disproportionate to manipulations performed for placement of catheter. Based on this, the patient probably would benefit from an intraoperative evaluation and disimpaction procedure. TIME SPENT: Over 70 minutes of initial consultation, evaluation, and assessment time was spent in the assessment of this patient. Job ID: [id number]
[2019-11-04 06:20] LABS: Bacteria/HPF None Seen HPF (None Seen); Bilirubin Negative (Negative); Blood, Urine 1+ (Negative); Clarity Clear (Clear); Glucose, Urine (Dipstick) Normal (Negative); Ketone, Urine Negative (Negative); Leukocyte 250 Leu/uL (Negative); Nitrite Negative (Negative); Protein, Urine (Dipstick) 30 mg/dL (Neg-Trace); Specific Gravity, Urine 1.019 (1.002-1.036); Squamous Epithelial 0-3 HPF (0-3); pH, Urine 6.5 (5.0-9.0)
[2019-11-04] MEDS: Levothyroxine Sodium 100 MCG TAB PO SCH (06:27)
[2019-11-04 06:38] LABS: #Eosinphils 0.1 thou/uL (0.0-0.7); #Lymphocytes 2.4 thou/uL (1.20-3.40); #Monocytes 0.6 thou/uL (0.11-0.59); #Neutrophils 2.2 thou/uL (1.40-6.50); %Basophils 0.5 % (0.0-1.0); %Eosinophils 2.6 % (0.0-10.0); %Lymphocytes 44.3 % (21.0-51.0); %Monocytes 11.5 % (0.0-10.0); Hemoglobin 11.6 g/dL (12.0-16.0); Mean Corpuscular HGB CONC 31.5 g/dL (32.0-36.0); Mean Corpuscular Hemoglobin 32.4 pg (27.0-31.0); Mean Platelet Volume 6.5 fL (7.4-10.4); Platelet Count 293 thou/uL (130-400); RBC Distribution Width 16.5 % (11.5-14.5); Red Blood Cell (RBC) Count 3.58 mill/uL (4.20-5.40); White Blood Cell (WBC) Count 5.4 thou/uL (4.8-10.8)
[2019-11-04 06:51] LABS: INR-International Normal Ratio 3.5; Prothrombin Time 35.1 sec (12.0-14.7)
[2019-11-04 06:53] LABS: Anion Gap 12 mmol/L (10-20); BUN (Urea Nitrogen) 9 mg/dL (9.8-20.1); Calc. Creatinine Clearance 122 mL/min (70-130); Calcium 9.1 mg/dL (7.8-10.44); Carbon Dioxide 28 mmol/L (23-31); Chloride 103 mmol/L (98-107); Estimated GFR-MDRD 80; Glucose 108 mg/dL (83-110); Potassium 3.8 mmol/L (3.5-5.1); Sodium 139 mmol/L (136-145)
[2019-11-04] MEDS ORDERED: Oxybutynin 5 MG TAB PO SCH (09:45)
[2019-11-04] MEDS: Senokot S 8.6-50 MG TAB PO SCH ×2 (10:10→20:19)
[2019-11-04] MEDS: Polyethylene Glycol 3350 17 GM Packet PO SCH ×3 (10:10→20:19)
[2019-11-04] MEDS: HumaLOG 300 UNITS/3 ML VIAL SC PRN (13:26)
[2019-11-04] MEDS ORDERED: Polyethylene Glycol 3350 17 GM Packet PO PRN (13:53)
--- NOTE | 2019-11-04 13:56 | PDOC.HOSPP ---
- Subjective Encounter Date: 11/04/19 Subjective: Patient reports she feels just fine today. She had apparently reported some discomfort this morning related to her bladder but she denied any discomfort when I spoke with her. Said she felt like she was very much in her usual state. - Objective Vital Signs & Weight: Vital Signs (12 hours) Temp Pulse Resp BP BP Pulse Ox 11/04/19 12:35 99 F 94 20 114/79 100 11/04/19 10:10 94 L 11/04/19 09:22 98.6 F 112 H 24 H 119/79 94 L 11/04/19 04:00 97.4 F L 83 20 168/72 H 95 Weight Admit Weight 290 lb 8 oz Weight 290 lb 8 oz I&O: 11/03/19 11/04/19 11/05/19 06:59 06:59 06:59 Intake Total 400 595 Output Total 500 Balance -100 595 Result Diagrams: 11/04/19 06:21 11/04/19 06:21 Additional Labs: Accuchecks 11/04/19 11/04/19 11/03/19 11:34 04:30 15:36 POC Glucose 171 H 137 H 119 H Hospitalist ROS - Medication Medications: Active Medications Generic Name Dose Route Start Last Admin Trade Name Freq PRN Reason Stop Dose Admin Insulin Human Lispro 0 units 11/03/19 10:31 11/04/19 13:26 Humalog SC 2 unit .MILD SLIDING SCALE PRN Administration Mild Correctional Scale Levothyroxine Sodium 100 mcg 11/04/19 06:00 11/04/19 06:27 Synthroid PO Not Given 0600 SARTHAK Polyethylene Glycol 17 gm 11/03/19 15:00 11/04/19 10:10 Miralax PO 17 gm TID SARTHAK Administration Senna/Docusate Sodium 2 tab 11/02/19 21:00 11/04/19 10:10 Senokot S PO 2 tab BID SARTHAK Administration - Exam General Appearance: NAD, awake alert General - other findings: Morbidly obese. Heart: RRR, no murmur, no gallops, no rubs, normal peripheral pulses Respiratory: CTAB, no wheezes, no rales, no ronchi, normal chest expansion, no tachypnea, normal percussion Gastrointestinal: soft, non-tender, non-distended, normal bowel sounds, no palpable masses, no hepatomegaly, no splenomegaly, no bruit Extremities - other findings: Right lateral calf with wound VAC in place. Skin: normal turgor Musculoskeletal: generalized weakness Psychiatric: normal affect, normal behavior Hosp A/P (1) Fecal impaction Code(s): K56.41 - FECAL IMPACTION Status: Acute (2) Constipation Code(s): K59.00 - CONSTIPATION, UNSPECIFIED Status: Chronic (3) Wound of right leg Code(s): S81.801A - UNSPECIFIED OPEN WOUND, RIGHT LOWER LEG, INITIAL ENCOUNTER Status: Chronic (4) Atrial fibrillation Code(s): I48.91 - UNSPECIFIED ATRIAL FIBRILLATION Status: Chronic (5) Morbid obesity Code(s): E66.01 - MORBID (SEVERE) OBESITY DUE TO EXCESS CALORIES Status: Chronic (6) Status post mechanical aortic valve replacement Code(s): Z95.2 - PRESENCE OF PROSTHETIC HEART VALVE Status: Chronic - Plan Fecal impaction: Patient had manual disimpaction yesterday. She had multiple medical interventions and ultimately had several significant bowel movements. Today she denies any significant problems. Continue with senna and PRN MiraLAX. Constipation: Chronic. Continue with oral senna. Mechanical aortic valve: Therapeutic on warfarin. Atrial fibrillation: Therapeutic on warfarin. Good rate control. : Was initially some concern for possible urinary retention. Discussed the case with Dr. Kirk. Suspect this may not have been retention at all. He is comfortable with removing the Gibbons catheter today. Right lower extremity wound: Wound VAC is in place. Overall the area appears to be significantly improved from when I saw her during her most recent admission. Disposition: The patient continues to feel well in the morning and she is able to void adequately without the Gibbons catheter she can likely discharge back to home with the care of her family.
--- NOTE | 2019-11-04 14:25 | CON ---
DATE OF CONSULTATION: 11/04/2019 INITIAL REASON FOR CONSULTATION: Concern for urinary retention. NEW AND ADDITIONAL DIAGNOSIS: Urinary tract infection. BRIEF HISTORY: Ms. Ifrah Hernández is an 84-year-old white female, admitted to [facility] on 11/02/2019. She had a complaint of perirectal discomfort and was admitted for stool disimpaction and management of acute rectal pain. The patient's bladder was relatively full on her admission CT scan. There were some concerns that the patient might be in urinary retention. I was consulted to evaluate and place Gibbons catheter yesterday and received about 500 mL return, not a true postvoid residual. The patient's urine had slight cloudiness to this and we sent it for urinalysis and culture, and urinalysis shows the presence of red blood cells and white blood cells and is highly suggestive of urinary tract infection. There were bacteria seen on microscopic evaluation. Based on that, I believe the patient should be treated in accordance with past urine cultures. Today, Ms. Hernández appears to be better, even though she is not on antibiotics. The patient's physical examination yesterday showed changes consistent with postmenopausal atrophic vaginitis, which would lead to increased risk of urinary tract infection. The patient has had interval evaluation and treatment for impaction of stool, seems to be doing better with bowel movement having been recorded. PHYSICAL EXAMINATION: VITAL SIGNS: Temperature is 99.0, pulse 118, blood pressure is 114/79, O2 saturation on room air is 95%. HEAD, EYES, EARS, NOSE, AND THROAT: Extraocular movements are intact. Sclerae are anicteric. Oropharynx is clear. NECK: Supple. LUNGS: Clear to auscultation bilaterally. CARDIAC: There is a tachycardic rate. ABDOMEN: Soft and obese and nontender on today's examination. GENITOURINARY: Indwelling Gibbons catheter is in place, shows relatively concentrated urine, again with a cloudiness appearance, which was observed yesterday. The patient is not reporting pain with the presence of the catheter in the bladder. EXTREMITIES: The patient has a wound VAC to the right leg. LABORATORY STUDIES: The patient does not have an elevated white count on laboratories today with white count of 5.4, hemoglobin is 11.6, with hematocrit of 36.9. There is a slight lowering of the patient's percent neutrophil count overnight, but there is no evidence of true left shift. Urine culture was obtained previously on 10/11/2019 and showed Pseudomonas aeruginosa. A culture obtained on 10/04/2019, showed Pseudomonas aeruginosa and yeast species present in her urine. Based on those cultures, the patient's urine would be sensitive to fluoroquinolones. The culture from yesterday remains pending. ASSESSMENT AND PLAN: 1. Probable urinary tract infection, recommend treating in accordance with previous culture results for now and follow up on the patient's culture longer-term. 2. Concerns for urinary retention. The patient could be tried on a voiding trial today, removing the Gibbons catheter and obtaining true postvoid residuals by bladder scan. 3. Constipation. The patients should be on a bowel program with MiraLAX and other suitable agents as directed by General Surgery. Over 35 minutes of consultation, assessment, evaluation time spent on evaluation of this patient today. Job ID: [id number]
[2019-11-04] MEDS ORDERED: Warfarin Sodium 2.5 MG TAB PO SCH ×2 (17:00→18:00)
--- NOTE | 2019-11-04 19:47 | PRG ---
DATE OF SERVICE: 11/04/2019 REASON FOR CONSULTATION: Fecal impaction, chronic constipation. SUBJECTIVE: With the bowel regimen that the patient was placed on including MiraLAX, mineral enema, and magnesium citrate along with senna, she was able to finally have a bowel movement and per nursing staff, has had multiple soft stool bowel movements over the course of the day today and complete resolution of her abdominal pain. Upon speaking with the patient later this afternoon, she states that her feeling is that she is in her usual state of health and is very pleased with how much better she is feeling at the current time. Otherwise, she denies any nausea, vomiting, fevers, chills, hematemesis, melena, hematochezia, dysphagia, or odynophagia. OBJECTIVE: VITAL SIGNS: Temperature 97.9, pulse 93, blood pressure 127/87, respiratory rate 20, saturating 94% on room air. GENERAL: The patient was lying in bed, in no acute distress. Alert and oriented x3. Morbidly obese body habitus. CARDIOVASCULAR: Irregularly irregular rhythm with a loud aortic valve click secondary to mechanical valve. RESPIRATORY: Clear to auscultation bilaterally. ABDOMEN: Normoactive bowel sounds. Soft, nontender, nondistended. EXTREMITIES: No cyanosis, clubbing, or edema. Wound VAC noted on the right lower extremity. LABORATORY DATA: CBC with a white blood cell count of 5.4, hemoglobin 11.6, hematocrit 36.9, platelets 293. INR 3.5. Chemistry with a sodium of 139, potassium 3.8, chloride 103, CO2 of 28, BUN 9, creatinine 0.7, glucose 108. IMAGING DATA: No current GI imaging is available for review. ASSESSMENT AND PLAN: The patient is an 84-year-old female with past medical history of atrial fibrillation, mechanical aortic valve, on chronic anticoagulation, hypertension, hypothyroidism, hyperlipidemia, morbid obesity, and chronic constipation presenting with fecal impaction. Fecal impaction/chronic constipation. The patient initially presented with acute onset of increased abdominal/perirectal pain associated with the inability to have a bowel movement for 4 to 5 days prior to admission. Initial imaging in the patient with CT abdomen and pelvis showed a large amount of retained stool seen throughout the entire colon with dilation of the rectum up to 9.3 cm in size. Attempts at manual disimpaction x2 were relatively unsuccessful in relieving this obstruction. However, with the administration of mineral enemas, magnesium citrate, MiraLAX 17 g three times daily and senna, the patient was finally able to have multiple bowel movements consistent of soft stool rather than hard stool. At this time, she has had complete resolution of her abdominal pain. RECOMMENDATIONS: 1. The patient will need to be on a chronic constipation regimen and based on her outpatient medications, would probably benefit from the following. a. MiraLAX 17 g twice daily. b. Senna to be used as needed. c. Higher fiber diet. d. Use of magnesium citrate if the patient has not had a bowel movement for 3 to 4 days. 2. I would avoid lactulose as a laxative agent in this patient given its propensity to generate increased abdominal pressure and gas resulting in abdominal pain. 3. Endoscopic evaluation/intervention is not indicated at this time. Given the resolution of her impaction and constipation, we will sign off at this time. Please call with any questions. Job ID: [id number]
[2019-11-05] MEDS: Levothyroxine Sodium 100 MCG TAB PO SCH (05:26)
[2019-11-05] MEDS: Acetaminophen 325 MG TAB PO PRN ×2 (05:26→20:26)
[2019-11-05 06:07] LABS: INR-International Normal Ratio 2.1; Prothrombin Time 23.6 sec (12.0-14.7)
[2019-11-05] MEDS: Polyethylene Glycol 3350 17 GM Packet PO SCH ×2 (08:13→20:27)
[2019-11-05] MEDS: Senokot S 8.6-50 MG TAB PO SCH ×2 (08:13→20:26)
--- NOTE | 2019-11-05 11:18 | PDOC.HOSPP ---
- Subjective Encounter Date: 11/05/19 (f/u fecal impaction) Encounter Time: 11:16 Subjective: Pt without complaints - states the pain has resolved. the issa cath was removed, a pure-wick in place with UOP. Pt reports she has been non-ambulatory x 4 months at home. Her daughter is living with her, and she used to have home health. - Objective Vital Signs & Weight: Vital Signs (12 hours) Temp Pulse Resp BP Pulse Ox 11/05/19 08:13 92 L 11/05/19 07:36 98.0 F 113 H 17 122/78 92 L Weight Admit Weight 290 lb 8 oz Weight 290 lb 8 oz I&O: 11/04/19 11/05/19 11/06/19 06:59 06:59 06:59 Intake Total 400 1073 Output Total 500 251 Balance -100 822 Result Diagrams: 11/04/19 06:21 11/05/19 11:48 Additional Labs: Accuchecks 11/05/19 11/04/19 11/04/19 05:32 20:39 16:57 POC Glucose 137 H 146 H 109 11/04/19 11:34 POC Glucose 171 H Hospitalist ROS - Medication Medications: Active Medications Generic Name Dose Route Start Last Admin Trade Name Freq PRN Reason Stop Dose Admin Acetaminophen 650 mg 11/05/19 03:53 11/05/19 05:26 Tylenol PO 650 mg Q4H PRN Administration Headache/Fever or Pain Insulin Human Lispro 0 units 11/03/19 10:31 11/04/19 13:26 Humalog SC 2 unit .MILD SLIDING SCALE PRN Administration Mild Correctional Scale Levofloxacin 500 mg 11/05/19 06:00 11/05/19 05:26 Levaquin PO 500 mg 0600 SARTHAK Administration Levothyroxine Sodium 100 mcg 11/04/19 06:00 11/05/19 05:26 Synthroid PO 100 mcg 0600 SARTHAK Administration Polyethylene Glycol 17 gm 11/04/19 21:00 11/05/19 08:13 Miralax PO 17 gm BID SARTHAK Administration Senna/Docusate Sodium 2 tab 11/02/19 21:00 11/05/19 08:13 Senokot S PO 2 tab BID SARTHAK Administration - Exam General Appearance: NAD Heart: irregular Heart - other findings: mechanical valve sound Respiratory: CTAB, no wheezes Gastrointestinal: soft, non-tender, non-distended, normal bowel sounds Extremities: no cyanosis, no clubbing, no edema Skin - other findings: wound vac lateral RLE Hosp A/P (1) UTI (urinary tract infection) Status: Acute (2) Fecal impaction Code(s): K56.41 - FECAL IMPACTION Status: Resolved (3) Constipation Code(s): K59.00 - CONSTIPATION, UNSPECIFIED Status: Chronic (4) Atrial fibrillation Code(s): I48.91 - UNSPECIFIED ATRIAL FIBRILLATION Status: Chronic (5) Status post mechanical aortic valve replacement Code(s): Z95.2 - PRESENCE OF PROSTHETIC HEART VALVE Status: Chronic (6) Wound of right leg Code(s): S81.801A - UNSPECIFIED OPEN WOUND, RIGHT LOWER LEG, INITIAL ENCOUNTER Status: Chronic - Plan Presenting sx of fecal impaction/stercoral colitis resolved - appreciate GI consult - continue scheduled bowel meds Mechanical aortic valve - INR today is 2.1, and was 3.5 yesterday. Will d/w Dr. Solorio the goal INR and pharmacy regarding dosing and when patient needs to be covered with heparin or lovenox - Will have patient remain in hospital tonight to recheck tomorrow - I'm concerned it will be lower A Fib - on coumadin RLE wound - continue wound vac and f/u in outpatient setting UTI - follow culture - appreciate eval by Dr. Kirk/Urology dvt prophy - not indicated, on coumadin and INR 2.1 gi prophy - not indicated code status full reviewed plan of care with patient, no questions or further needs at end of eval Reviewed with Dr. Solorio who recommends covering with full dose lovenox until INR > 2.5. BMP ordered to ensure no change in renal function. Discussed with Pharmacist the plan for coverage with lovenox for the mechanical valve only until INR 2.5 or higher - this info being added to their coumadin checks/ reviews daily.
[2019-11-05 12:28] LABS: Anion Gap 13 mmol/L (10-20); BUN (Urea Nitrogen) 9 mg/dL (9.8-20.1); Calc. Creatinine Clearance 121 mL/min (70-130); Calcium 9.1 mg/dL (7.8-10.44); Carbon Dioxide 27 mmol/L (23-31); Chloride 100 mmol/L (98-107); Estimated GFR-MDRD 78; Glucose 122 mg/dL (83-110); Potassium 3.8 mmol/L (3.5-5.1); Sodium 136 mmol/L (136-145)
[2019-11-05] MEDS: HumaLOG 300 UNITS/3 ML VIAL SC PRN (17:36)
[2019-11-05] MEDS: Warfarin Sodium 1 MG TAB PO SCH (17:38)
--- NOTE | 2019-11-05 19:11 | CON ---
DATE OF CONSULTATION: 11/05/2019 CHIEF COMPLAINT: 1. Concern for urinary retention. 2. Possible urinary tract infection. BRIEF HISTORY: Ms. Ifrah Hernández is an 84-year-old white female, admitted to [facility] on 11/02/2019 with a complaint of perirectal discomfort and stool impaction. The patient primarily had acute rectal pain, but also generalized nonfocal bilateral lower abdominal discomfort. The patient does have a repetitive behavior of screaming out for help, and this makes overall assessment of the patient difficult. I was consulted to evaluate the patient and did place a Gibbons catheter on 11/03/2019. The patient's urine had a slight cloudiness to it, and we did send it for urinalysis and culture. Today, the patient reports that she is doing well. We removed her Gibbons catheter yesterday, and she has aspiration tube in place. PHYSICAL EXAMINATION: VITAL SIGNS: Temperature 98.0, pulse 113, respirations 17, O2 saturations 92%, blood pressure is 122/78. GENERAL: This is a pleasant white female, who does have some screaming out and unusual other behaviors, mostly seeking attention. HEAD, EYES, EARS, NOSE, THROAT: Extraocular movements are intact. Sclerae are anicteric. Oropharynx is clear. NECK: Supple. LUNGS: Clear to auscultation bilaterally. CARDIAC: Regular rate and rhythm without murmur, rub, or gallop. ABDOMEN: Soft and nontender. There is no suprapubic fullness or tenderness today. GENITOURINARY: catheter is in place, which is aspirating the urine that is voided. The patient has no specific complaints today. LABORATORY FINDINGS: The patient's white count is 5400, hemoglobin 11.6 with hematocrit of 36.9. Serum chemistries with a Gibbons catheter out showed a creatinine of 0.71 with blood urea nitrogen of 9. The patient's urinalysis from 11/04/2019 showed white cells at 11 to 20 and red cells at 11 to 20 with leukocyte esterase of 250. Urine culture is showing no growth at 24 hours. ASSESSMENT: No clear evidence of urinary retention, possible urinary tract infection with cultures remain pending. PLAN: The patient should be treated as indicated by culture results for possible urinary tract infection, for now remaining on Levaquin. No growth is observed so far. I will be available by phone for consultation of this patient if necessary. Over 35 minutes of consultation, evaluation, and assessment time was spent in the assessment of this patient today, exclusive of any procedures performed. Job ID: [id number]
[2019-11-05] MEDS: Enoxaparin Sodium 80 MG/0.8 ML SYRINGE SC SCH (20:27)
[2019-11-06] MEDS: Acetaminophen 325 MG TAB PO PRN ×2 (05:26→09:31)
[2019-11-06] MEDS: Levothyroxine Sodium 100 MCG TAB PO SCH (05:26)
[2019-11-06 06:00] LABS: #Eosinphils 0.2 thou/uL (0.0-0.7); #Lymphocytes 1.8 thou/uL (1.20-3.40); #Monocytes 0.7 thou/uL (0.11-0.59); %Basophils 0.9 % (0.0-1.0); %Eosinophils 4.1 % (0.0-10.0); %Monocytes 11.8 % (0.0-10.0); %Neutrophils 52.2 % (42.0-75.0); Hemoglobin 11.2 g/dL (12.0-16.0); INR-International Normal Ratio 1.6; Mean Corpuscular HGB CONC 31.1 g/dL (32.0-36.0); Mean Corpuscular Hemoglobin 32.1 pg (27.0-31.0); Mean Platelet Volume 6.4 fL (7.4-10.4); Platelet Count 325 thou/uL (130-400); Prothrombin Time 18.8 sec (12.0-14.7); RBC Distribution Width 16.2 % (11.5-14.5); White Blood Cell (WBC) Count 5.7 thou/uL (4.8-10.8)
[2019-11-06 06:13] LABS: Anion Gap 11 mmol/L (10-20); BUN (Urea Nitrogen) 6 mg/dL (9.8-20.1); Calc. Creatinine Clearance 119 mL/min (70-130); Carbon Dioxide 28 mmol/L (23-31); Chloride 101 mmol/L (98-107); Estimated GFR-MDRD 77; Glucose 140 mg/dL (83-110); Potassium 3.5 mmol/L (3.5-5.1); Sodium 136 mmol/L (136-145)
[2019-11-06] MEDS: Senokot S 8.6-50 MG TAB PO SCH ×2 (08:50→21:12)
[2019-11-06] MEDS: Polyethylene Glycol 3350 17 GM Packet PO SCH ×2 (08:50→21:15)
[2019-11-06] MEDS: Enoxaparin Sodium 80 MG/0.8 ML SYRINGE SC SCH ×2 (08:51→21:14)
[2019-11-06] MEDS ORDERED: METOPROLOL SUCCINATE PO SCH (09:00)
[2019-11-06] MEDS ORDERED: busPIRone HCl 5 MG TAB PO PRN (09:00)
[2019-11-06] MEDS ORDERED: Metoprolol Tartrate 25 MG TAB PO SCH (09:00)
[2019-11-06] MEDS ORDERED: Non-Formulary Item 1 EACH (Atorvastatin Calcium [Lipitor] 80 MG) PO SCH (09:00)
[2019-11-06] MEDS ORDERED: Non-Formulary Item 1 EACH (Budesonide-Formoterol [Symbicort 80-4.5] 1 PUFF) PO PRN (09:00)
[2019-11-06] MEDS ORDERED: metFORMIN 500 MG TAB PO SCH ×2 (09:00→09:45)
--- NOTE | 2019-11-06 09:02 | PDOC.HOSPP ---
- Subjective Encounter Date: 11/06/19 Encounter Time: 12:00 Subjective: Patient without complaints overnight. States she feels fine. - Objective Vital Signs & Weight: Vital Signs (12 hours) Temp Pulse Resp BP Pulse Ox 11/06/19 07:05 97.9 F 127 H 22 H 127/74 98 11/06/19 05:34 98.1 F 81 18 142/89 H 97 11/06/19 05:31 96 Weight Admit Weight 290 lb 8 oz Weight 290 lb 8 oz I&O: 11/05/19 11/06/19 11/07/19 06:59 06:59 06:59 Intake Total 1073 1520 Output Total 251 1900 Balance 822 -380 Result Diagrams: 11/06/19 05:42 11/06/19 05:42 Additional Labs: Accuchecks 11/06/19 11/05/19 11/05/19 05:36 20:54 15:26 POC Glucose 151 H 133 H 169 H 11/05/19 11:44 POC Glucose 133 H Hospitalist ROS - Review of Systems Constitutional: denies: fever, chills Respiratory: denies: cough, shortness of breath Cardiovascular: denies: chest pain, palpitations Gastrointestinal: denies: nausea, vomiting, abdominal pain Genitourinary: denies: dysuria - Medication Medications: Active Medications Generic Name Dose Route Start Last Admin Trade Name Freq PRN Reason Stop Dose Admin Acetaminophen 650 mg 11/05/19 03:53 11/06/19 05:26 Tylenol PO 650 mg Q4H PRN Administration Headache/Fever or Pain Enoxaparin Sodium 130 mg 11/05/19 21:00 11/05/19 20:27 Lovenox SC 130 mg Q12HR SARTHAK Administration Insulin Human Lispro 0 units 11/03/19 10:31 11/05/19 17:36 Humalog SC 2 unit .MILD SLIDING SCALE PRN Administration Mild Correctional Scale Levofloxacin 500 mg 11/05/19 06:00 11/06/19 05:26 Levaquin PO 500 mg 0600 SARTHAK Administration Levothyroxine Sodium 100 mcg 11/04/19 06:00 11/06/19 05:26 Synthroid PO 100 mcg 0600 SARTHAK Administration Polyethylene Glycol 17 gm 11/04/19 21:00 11/05/19 20:27 Miralax PO 17 gm BID SARTHAK Administration Senna/Docusate Sodium 2 tab 11/02/19 21:00 11/05/19 20:26 Senokot S PO 2 tab BID SARTHAK Administration Warfarin Sodium 1 mg 11/05/19 17:00 11/05/19 17:38 Coumadin PO 1 mg 1700 SARTHAK Administration - Exam General Appearance: NAD, awake alert ENT: moist mucosa Heart: RRR, no murmur, no gallops, no rubs Respiratory: CTAB, no wheezes, no rales, no ronchi Gastrointestinal: soft, non-tender, non-distended Extremities - other findings: left hand purplish, appears congested, intact pulses Psychiatric: normal affect, normal behavior, A&O x 3 Hosp A/P (1) Fecal impaction Code(s): K56.41 - FECAL IMPACTION Status: Resolved (2) UTI (urinary tract infection) Status: Suspected (3) Atrial fibrillation Code(s): I48.91 - UNSPECIFIED ATRIAL FIBRILLATION Status: Chronic (4) Status post mechanical aortic valve replacement Code(s): Z95.2 - PRESENCE OF PROSTHETIC HEART VALVE Status: Chronic (5) Diabetes mellitus Code(s): E11.9 - TYPE 2 DIABETES MELLITUS WITHOUT COMPLICATIONS Status: Chronic Qualifiers: Diabetes mellitus type: type 2 (6) Hypothyroidism Code(s): E03.9 - HYPOTHYROIDISM, UNSPECIFIED Status: Chronic (7) Morbid obesity Code(s): E66.01 - MORBID (SEVERE) OBESITY DUE TO EXCESS CALORIES Status: Chronic (8) Wound of right leg Code(s): S81.801A - UNSPECIFIED OPEN WOUND, RIGHT LOWER LEG, INITIAL ENCOUNTER Status: Chronic - Plan Presenting sx of fecal impaction/stercoral colitis resolved - appreciate GI consult - continue scheduled bowel meds- Miralax BID, prn Senna, if no BM for 3-4 days can give dose of MOM Mechanical aortic valve - INR today is below 2, on Lovenox until between 2.5-3.5, Pharmacy managing. A Fib - restarting coumadin, full dose Lovenox until INR above 2.5, restart home Metoprolol XL for intermittently elevated rate DM type 2 - normal renal function, will resume Metformin RLE wound - continue wound vac and f/u in outpatient setting UTI - follow culture - appreciate eval by Dr. Reagan/Urology, no growth at 24 hours, if final culture negative can d/c abx dvt prophy - not indicated, on coumadin and INR 2.1 gi prophy - not indicated code status full reviewed plan of care with patient, no questions or further needs at end of eval
[2019-11-06] MEDS ORDERED: Mometasone 100 MCG/Formoterol 5 MCG 120 PUFF INHALER INH PRN (09:38)
[2019-11-06] MEDS: Furosemide 20 MG TAB PO SCH (10:37)
--- NOTE | 2019-11-06 16:05 | PDOC.FMACP ---
Advance Care Planning - Problem (1) Palliative care encounter Status: Acute Code(s): Z51.5 - ENCOUNTER FOR PALLIATIVE CARE (2) UTI (urinary tract infection) Status: Suspected (3) Fecal impaction Status: Resolved Code(s): K56.41 - FECAL IMPACTION (4) Atrial fibrillation Status: Chronic Code(s): I48.91 - UNSPECIFIED ATRIAL FIBRILLATION (5) Diabetes mellitus Status: Chronic Code(s): E11.9 - TYPE 2 DIABETES MELLITUS WITHOUT COMPLICATIONS Qualifiers: Diabetes mellitus type: type 2 (6) Morbid obesity Status: Chronic Code(s): E66.01 - MORBID (SEVERE) OBESITY DUE TO EXCESS CALORIES (7) Status post mechanical aortic valve replacement Status: Chronic Code(s): Z95.2 - PRESENCE OF PROSTHETIC HEART VALVE (8) Wound of right leg Status: Chronic Code(s): S81.801A - UNSPECIFIED OPEN WOUND, RIGHT LOWER LEG, INITIAL ENCOUNTER - Note Participants: patient, palliative care Summary: Advanced Care Planning was discussed by Palliative Care, opportunity to decline. The diagnosis, prognosis and goals of care were discussed. Appropriate forms and documentation to accomplish the goals of care were discussed. All questions were answered. Ms Hernández elected to complete MPOA and Directive to Physician, original given to patient with copy as well a copy placed on patient hospital chart. Confirmed full resuscitation measures. Please refer to Palliative Care notes in note section as well.
[2019-11-06] MEDS: Warfarin Sodium 1 MG TAB PO SCH (17:58)
[2019-11-06] MEDS: Atorvastatin Calcium 40 MG TAB PO SCH (21:13)
[2019-11-07] MEDS: Levothyroxine Sodium 100 MCG TAB PO SCH (05:29)
[2019-11-07 06:01] LABS: INR-International Normal Ratio 1.6; Prothrombin Time 19.2 sec (12.0-14.7)
[2019-11-07] MEDS: Enoxaparin Sodium 80 MG/0.8 ML SYRINGE SC SCH ×2 (08:24→20:48)
[2019-11-07] MEDS: Senokot S 8.6-50 MG TAB PO SCH (08:25)
[2019-11-07] MEDS: Polyethylene Glycol 3350 17 GM Packet PO SCH ×2 (08:25→20:49)
[2019-11-07] MEDS: Furosemide 20 MG TAB PO SCH (08:26)
[2019-11-07] MEDS: metFORMIN 500 MG TAB PO SCH (08:26)
--- NOTE | 2019-11-07 10:55 | PDOC.HOSPP ---
- Subjective Encounter Date: 11/07/19 Encounter Time: 11:20 Subjective: Patient feeling well today. No complaints except chronic problem with her right ankle that she broke and had in a walking boot for a long time previously. She though maybe someone had come by to see her about it this hospitalization, though no Ortho consults have been made and she can follow up about this problem as an outpatient. - Objective Vital Signs & Weight: Vital Signs (12 hours) Temp Pulse Resp BP BP Pulse Ox 11/07/19 07:25 97.8 F 95 18 125/69 94 L 11/07/19 04:01 98.3 F 66 20 139/82 94 L Weight Admit Weight 290 lb 8 oz Weight 290 lb 8 oz I&O: 11/06/19 11/07/19 11/08/19 06:59 06:59 06:59 Intake Total 1520 1440 Output Total 1900 875 125 Balance -380 565 -125 Result Diagrams: 11/06/19 05:42 11/06/19 05:42 Additional Labs: Accuchecks 11/07/19 11/06/19 11/06/19 04:10 20:28 16:15 POC Glucose 121 H 142 H 125 H 11/06/19 11:44 POC Glucose 126 H Hospitalist ROS - Review of Systems Constitutional: denies: fever, chills Respiratory: denies: cough, shortness of breath Cardiovascular: denies: chest pain, palpitations Gastrointestinal: denies: nausea, vomiting, abdominal pain, diarrhea, constipation - Medication Medications: Active Medications Generic Name Dose Route Start Last Admin Trade Name Freq PRN Reason Stop Dose Admin Acetaminophen 650 mg 11/05/19 03:53 11/06/19 09:31 Tylenol PO 650 mg Q4H PRN Administration Headache/Fever or Pain Atorvastatin Calcium 80 mg 11/06/19 21:00 11/06/19 21:13 Lipitor PO 80 mg HS SARTHAK Administration Enoxaparin Sodium 130 mg 11/05/19 21:00 11/07/19 08:24 Lovenox SC 130 mg Q12HR SARTHAK Administration Furosemide 20 mg 11/06/19 09:00 11/07/19 08:26 Lasix PO 20 mg DAILY SARTHAK Administration Insulin Human Lispro 0 units 11/03/19 10:31 11/05/19 17:36 Humalog SC 2 unit .MILD SLIDING SCALE PRN Administration Mild Correctional Scale Levofloxacin 500 mg 11/05/19 06:00 11/07/19 05:29 Levaquin PO 500 mg 0600 SARTHAK Administration Levothyroxine Sodium 100 mcg 11/04/19 06:00 11/07/19 05:29 Synthroid PO 100 mcg 0600 SARTHAK Administration Metformin HCl 500 mg 11/07/19 09:00 11/07/19 08:26 Glucophage PO 500 mg DAILY SARTHAK Administration Metoprolol Succinate 25 mg 11/07/19 09:00 11/07/19 08:26 Toprol Xl PO 25 mg DAILY SARTHAK Administration Polyethylene Glycol 17 gm 11/04/19 21:00 11/07/19 08:25 Miralax PO Not Given BID SARTHAK Senna/Docusate Sodium 2 tab 11/02/19 21:00 11/07/19 08:25 Senokot S PO Not Given BID SARTHAK - Exam General Appearance: NAD, awake alert ENT: moist mucosa Heart: RRR, no murmur, no gallops, no rubs Respiratory: CTAB, no wheezes, no rales, no ronchi Gastrointestinal: soft, non-tender, non-distended, normal bowel sounds Psychiatric: normal affect, normal behavior, oriented to person, oriented to place, oriented to time Psychiatric - other findings: a little confuses about some details of hospitalization Hosp A/P (1) Fecal impaction Code(s): K56.41 - FECAL IMPACTION Status: Resolved (2) UTI (urinary tract infection) Status: Ruled-out (3) Atrial fibrillation Code(s): I48.91 - UNSPECIFIED ATRIAL FIBRILLATION Status: Chronic (4) Status post mechanical aortic valve replacement Code(s): Z95.2 - PRESENCE OF PROSTHETIC HEART VALVE Status: Chronic (5) Diabetes mellitus Code(s): E11.9 - TYPE 2 DIABETES MELLITUS WITHOUT COMPLICATIONS Status: Chronic Qualifiers: Diabetes mellitus type: type 2 (6) Hypothyroidism Code(s): E03.9 - HYPOTHYROIDISM, UNSPECIFIED Status: Chronic (7) Morbid obesity Code(s): E66.01 - MORBID (SEVERE) OBESITY DUE TO EXCESS CALORIES Status: Chronic (8) Wound of right leg Code(s): S81.801A - UNSPECIFIED OPEN WOUND, RIGHT LOWER LEG, INITIAL ENCOUNTER Status: Chronic - Plan Presenting sx of fecal impaction/stercoral colitis resolved - appreciate GI consult - continue scheduled bowel meds- Miralax BID, prn Senna, if no BM for 3-4 days can give dose of MOM, had stool today Mechanical aortic valve - INR today is below 2, on Lovenox until between 2.5-3.5, Pharmacy managing. A Fib - restarting coumadin, full dose Lovenox until INR above 2.5, restarted home Metoprolol XL for intermittently elevated rate DM type 2 - normal renal function, will resume Metformin RLE wound - continue wound vac and f/u in outpatient setting UTI - follow culture - appreciate eval by Dr. Kirk/Urology, no growth at 48 hours, can d/c antibiotics dvt prophy - not indicated, on coumadin and INR 2.1 gi prophy - not indicated code status full reviewed plan of care with patient, no questions or further needs at end of eval
[2019-11-07] MEDS ORDERED: Senokot S 8.6-50 MG TAB PO PRN (15:33)
[2019-11-07] MEDS: Warfarin Sodium 1.5 MG TAB PO SCH (16:54)
[2019-11-07] MEDS ORDERED: Warfarin Sodium 1.25 MG HALF.TAB PO SCH (17:00)
[2019-11-07] MEDS: Atorvastatin Calcium 40 MG TAB PO SCH (20:47)
[2019-11-08 05:59] LABS: #Eosinphils 0.2 thou/uL (0.0-0.7); #Lymphocytes 2.1 thou/uL (1.20-3.40); #Monocytes 0.7 thou/uL (0.11-0.59); #Neutrophils 1.9 thou/uL (1.40-6.50); %Eosinophils 3.1 % (0.0-10.0); %Lymphocytes 42.8 % (21.0-51.0); %Monocytes 13.5 % (0.0-10.0); %Neutrophils 39.7 % (42.0-75.0); Hemoglobin 11.5 g/dL (12.0-16.0); Mean Corpuscular HGB CONC 31.7 g/dL (32.0-36.0); Mean Corpuscular Hemoglobin 32.3 pg (27.0-31.0); Mean Platelet Volume 6.9 fL (7.4-10.4); Platelet Count 325 thou/uL (130-400); RBC Distribution Width 15.9 % (11.5-14.5); Red Blood Cell (RBC) Count 3.56 mill/uL (4.20-5.40); White Blood Cell (WBC) Count 4.9 thou/uL (4.8-10.8)
[2019-11-08 06:00] LABS: INR-International Normal Ratio 1.5; Prothrombin Time 17.6 sec (12.0-14.7)
[2019-11-08 06:13] LABS: Anion Gap 10 mmol/L (10-20); BUN (Urea Nitrogen) 7 mg/dL (9.8-20.1); Calc. Creatinine Clearance 116 mL/min (70-130); Calcium 9.1 mg/dL (7.8-10.44); Carbon Dioxide 30 mmol/L (23-31); Chloride 101 mmol/L (98-107); Estimated GFR-MDRD 75; Glucose 111 mg/dL (83-110); Potassium 3.7 mmol/L (3.5-5.1); Sodium 137 mmol/L (136-145)
[2019-11-08] MEDS: Levothyroxine Sodium 100 MCG TAB PO SCH (06:22)
--- NOTE | 2019-11-08 09:05 | EKG ---
Test Reason : Blood Pressure : / mmHG Vent. Rate : 101 BPM Atrial Rate : 110 BPM P-R Int : 000 ms QRS Dur : 138 ms QT Int : 396 ms P-R-T Axes : 000 101 -06 degrees QTc Int : 513 ms Atrial fibrillation with rapid ventricular response with premature ventricular or aberrantly conducte d complexes Right bundle branch block Abnormal ECG No previous ECGs available Confirmed by DR. Owen DEL ANGEL ([id number]) on 11/08/2019 9:05:11 AM Referred By: BAO Confirmed By:DR. Owen DEL ANGEL
--- NOTE | 2019-11-08 09:22 | PDOC.HOSPP ---
- Subjective Encounter Date: 11/08/19 Encounter Time: 12:30 Subjective: Patient not happy with the food. She tried to eat some jello while I was in the room and immediately started coughing. Same thing happened with nurse present this AM. - Objective Vital Signs & Weight: Vital Signs (12 hours) Temp Pulse Resp BP BP Pulse Ox 11/08/19 07:01 98.4 F 66 16 116/77 94 L 11/08/19 04:00 98.0 F 72 20 144/97 H 95 Weight Admit Weight 290 lb 8 oz Weight 290 lb 8 oz I&O: 11/07/19 11/08/19 11/09/19 06:59 06:59 06:59 Intake Total 1440 1080 Output Total 875 1350 Balance 565 -270 Result Diagrams: 11/08/19 05:28 11/08/19 05:28 Additional Labs: Accuchecks 11/08/19 11/07/19 11/07/19 04:19 19:17 16:27 POC Glucose 118 H 167 H 131 H 11/07/19 11:58 POC Glucose 116 H Hospitalist ROS - Review of Systems Constitutional: denies: fever, chills Respiratory: reports: cough. denies: shortness of breath Cardiovascular: denies: chest pain, palpitations, orthopnea Gastrointestinal: denies: nausea, vomiting, abdominal pain - Medication Medications: Active Medications Generic Name Dose Route Start Last Admin Trade Name Freq PRN Reason Stop Dose Admin Acetaminophen 650 mg 11/05/19 03:53 11/06/19 09:31 Tylenol PO 650 mg Q4H PRN Administration Headache/Fever or Pain Atorvastatin Calcium 80 mg 11/06/19 21:00 11/07/19 20:47 Lipitor PO 80 mg HS SARTHAK Administration Enoxaparin Sodium 130 mg 11/05/19 21:00 11/07/19 20:48 Lovenox SC 130 mg Q12HR SARTHAK Administration Furosemide 20 mg 11/06/19 09:00 11/07/19 08:26 Lasix PO 20 mg DAILY SARTHAK Administration Insulin Human Lispro 0 units 11/03/19 10:31 11/05/19 17:36 Humalog SC 2 unit .MILD SLIDING SCALE PRN Administration Mild Correctional Scale Levothyroxine Sodium 100 mcg 11/04/19 06:00 11/08/19 06:22 Synthroid PO 100 mcg 0600 SARTHAK Administration Metformin HCl 500 mg 11/07/19 09:00 11/07/19 08:26 Glucophage PO 500 mg DAILY SARTHAK Administration Metoprolol Succinate 25 mg 11/07/19 09:00 11/07/19 08:26 Toprol Xl PO 25 mg DAILY SARTHAK Administration Polyethylene Glycol 17 gm 11/04/19 21:00 11/07/19 20:49 Miralax PO 17 gm BID SARTHAK Administration Warfarin Sodium 1.5 mg 11/07/19 17:00 11/07/19 16:54 Coumadin PO 1.5 mg 1700 SARTHAK Administration - Exam General Appearance: NAD, awake alert ENT: moist mucosa Heart: RRR, no murmur, no gallops, no rubs Respiratory: CTAB, no wheezes, no rales, no ronchi Gastrointestinal: soft, non-tender, non-distended, normal bowel sounds Extremities - other findings: right lower leg wound with wound vac in place Psychiatric: normal affect, oriented to person, oriented to place, oriented to time Psychiatric - other findings: Patient yelling constantly when no one in the room , belligerent Hosp A/P (1) Fecal impaction Code(s): K56.41 - FECAL IMPACTION Status: Resolved (2) UTI (urinary tract infection) Status: Ruled-out (3) Atrial fibrillation Code(s): I48.91 - UNSPECIFIED ATRIAL FIBRILLATION Status: Chronic (4) Status post mechanical aortic valve replacement Code(s): Z95.2 - PRESENCE OF PROSTHETIC HEART VALVE Status: Chronic (5) Diabetes mellitus Code(s): E11.9 - TYPE 2 DIABETES MELLITUS WITHOUT COMPLICATIONS Status: Chronic Qualifiers: Diabetes mellitus type: type 2 (6) Hypothyroidism Code(s): E03.9 - HYPOTHYROIDISM, UNSPECIFIED Status: Chronic (7) Morbid obesity Code(s): E66.01 - MORBID (SEVERE) OBESITY DUE TO EXCESS CALORIES Status: Chronic (8) Wound of right leg Code(s): S81.801A - UNSPECIFIED OPEN WOUND, RIGHT LOWER LEG, INITIAL ENCOUNTER Status: Chronic - Plan Presenting sx of fecal impaction/stercoral colitis resolved - appreciate GI consult - continue scheduled bowel meds- Miralax BID, prn Senna, if no BM for 3-4 days can give dose of MOM, had stool today Mechanical aortic valve - INR today is below 2, on Lovenox until between 2.5-3.5, Pharmacy managing, cautiously increasing Warfarin since has been supratherapeutic on lower doses. A Fib - restarting coumadin, full dose Lovenox until INR above 2.5, restarted home Metoprolol XL for intermittently elevated rate DM type 2 - normal renal function, will resume Metformin RLE wound - continue wound vac and f/u in outpatient setting UTI - follow culture - appreciate eval by Dr. Kirk/Urology, no growth at 48 hours, antibiotics d/c'd possibly dysphagia- NPO, speech therapy consult dvt prophy - not indicated, on coumadin and INR 2.1 gi prophy - not indicated code status full reviewed plan of care with patient, no questions or further needs at end of eval
[2019-11-08] MEDS: metFORMIN 500 MG TAB PO SCH (09:27)
[2019-11-08] MEDS: Enoxaparin Sodium 80 MG/0.8 ML SYRINGE SC SCH ×2 (09:27→20:07)
[2019-11-08] MEDS: Polyethylene Glycol 3350 17 GM Packet PO SCH ×2 (09:27→20:07)
[2019-11-08] MEDS: Furosemide 20 MG TAB PO SCH (09:29)
[2019-11-08] MEDS: Acetaminophen 325 MG TAB PO PRN (11:24)
[2019-11-08] MEDS: Warfarin Sodium 1.5 MG TAB PO SCH (16:22)
[2019-11-08] MEDS: Atorvastatin Calcium 40 MG TAB PO SCH (20:37)
[2019-11-09] MEDS: Levothyroxine Sodium 100 MCG TAB PO SCH (05:18)
[2019-11-09 05:47] LABS: INR-International Normal Ratio 1.4; Prothrombin Time 16.7 sec (12.0-14.7)
[2019-11-09] MEDS: Furosemide 20 MG TAB PO SCH (08:10)
[2019-11-09] MEDS: metFORMIN 500 MG TAB PO SCH (08:10)
[2019-11-09] MEDS: Enoxaparin Sodium 80 MG/0.8 ML SYRINGE SC SCH ×2 (08:11→21:33)
[2019-11-09] MEDS: Polyethylene Glycol 3350 17 GM Packet PO SCH ×2 (08:11→21:33)
--- NOTE | 2019-11-09 08:16 | PDOC.HOSPP ---
- Subjective Encounter Date: 11/09/19 Encounter Time: 12:00 Subjective: Patient still passing stools. No more constipation. Patient has had some cough and mild shortness of breath since coughing on food yesterday. No fever. - Objective Vital Signs & Weight: Vital Signs (12 hours) Temp Pulse Resp BP Pulse Ox 11/09/19 08:06 98.5 F 80 16 109/76 96 11/09/19 04:00 98.1 F 90 20 115/76 94 L Weight Admit Weight 290 lb 8 oz Weight 290 lb 8 oz I&O: 11/08/19 11/09/19 11/10/19 06:59 06:59 06:59 Intake Total 1080 960 Output Total 1350 700 Balance -270 260 Result Diagrams: 11/08/19 05:28 11/08/19 05:28 Additional Labs: Accuchecks 11/09/19 11/08/19 11/08/19 05:38 19:54 15:50 POC Glucose 116 H 146 H 138 H 11/08/19 12:05 POC Glucose 157 H Hospitalist ROS - Review of Systems Constitutional: denies: fever, chills Respiratory: reports: cough, shortness of breath Cardiovascular: denies: chest pain, palpitations Gastrointestinal: denies: nausea, vomiting, abdominal pain, diarrhea, constipation - Medication Medications: Active Medications Generic Name Dose Route Start Last Admin Trade Name Freq PRN Reason Stop Dose Admin Acetaminophen 650 mg 11/05/19 03:53 11/08/19 11:24 Tylenol PO 650 mg Q4H PRN Administration Headache/Fever or Pain Atorvastatin Calcium 80 mg 11/06/19 21:00 11/08/19 20:37 Lipitor PO Not Given HS SARTHAK Enoxaparin Sodium 130 mg 11/05/19 21:00 11/09/19 08:11 Lovenox SC 130 mg Q12HR SARTHAK Administration Furosemide 20 mg 11/06/19 09:00 11/09/19 08:10 Lasix PO 20 mg DAILY SARTHAK Administration Insulin Human Lispro 0 units 11/03/19 10:31 11/05/19 17:36 Humalog SC 2 unit .MILD SLIDING SCALE PRN Administration Mild Correctional Scale Levothyroxine Sodium 100 mcg 11/04/19 06:00 11/09/19 05:18 Synthroid PO 100 mcg 0600 SARTHAK Administration Metformin HCl 500 mg 11/07/19 09:00 11/09/19 08:10 Glucophage PO 500 mg DAILY SARTHAK Administration Metoprolol Succinate 25 mg 11/07/19 09:00 11/09/19 08:10 Toprol Xl PO 25 mg DAILY SARTHAK Administration Polyethylene Glycol 17 gm 11/04/19 21:00 11/09/19 08:11 Miralax PO 17 gm BID SARTHAK Administration Warfarin Sodium 1.5 mg 11/07/19 17:00 11/08/19 16:22 Coumadin PO 1.5 mg 1700 SARTHAK Administration - Exam General Appearance: NAD, awake alert ENT: moist mucosa Heart: RRR, no murmur, no gallops, no rubs Respiratory: CTAB, no wheezes, no rales, no ronchi Gastrointestinal: soft, non-tender, non-distended, normal bowel sounds Extremities - other findings: right leg with wound vac in place Psychiatric: normal affect Psychiatric - other findings: yells constantly for help so someone will come in and chat with her Hosp A/P (1) Fecal impaction Code(s): K56.41 - FECAL IMPACTION Status: Resolved (2) UTI (urinary tract infection) Status: Ruled-out (3) Atrial fibrillation Code(s): I48.91 - UNSPECIFIED ATRIAL FIBRILLATION Status: Chronic (4) Status post mechanical aortic valve replacement Code(s): Z95.2 - PRESENCE OF PROSTHETIC HEART VALVE Status: Chronic (5) Diabetes mellitus Code(s): E11.9 - TYPE 2 DIABETES MELLITUS WITHOUT COMPLICATIONS Status: Chronic Qualifiers: Diabetes mellitus type: type 2 (6) Hypothyroidism Code(s): E03.9 - HYPOTHYROIDISM, UNSPECIFIED Status: Chronic (7) Morbid obesity Code(s): E66.01 - MORBID (SEVERE) OBESITY DUE TO EXCESS CALORIES Status: Chronic (8) Wound of right leg Code(s): S81.801A - UNSPECIFIED OPEN WOUND, RIGHT LOWER LEG, INITIAL ENCOUNTER Status: Chronic - Plan Presenting sx of fecal impaction/stercoral colitis resolved - appreciate GI consult - continue scheduled bowel meds- Miralax BID, prn Senna, if no BM for 3-4 days can give dose of MOM, had stool today Mechanical aortic valve - INR today is below 2, on Lovenox until between 2.5-3.5, Pharmacy managing, cautiously increasing Warfarin since has been supratherapeutic on lower doses. A Fib - restarting coumadin, full dose Lovenox until INR above 2.5, restarted home Metoprolol XL for intermittently elevated rate DM type 2 - normal renal function, resumed Metformin RLE wound - continue wound vac and f/u in outpatient setting UTI - follow culture - appreciate eval by Dr. Kirk/Urology, no growth at 48 hours, antibiotics d/c'd Dysphagia- Speech has given recs Cough and SOB- possibly aspiration yesterday, will check CXR and repeat CBC in the morning. dvt prophy - not indicated, on coumadin and INR 2.1 gi prophy - not indicated code status full reviewed plan of care with patient, no questions or further needs at end of eval
--- NOTE | 2019-11-09 15:37 | RAD ---
Exam: Chest one view HISTORY:Cough. Shortness of breath after aspiration yesterday. Comparison: 10/02/2015 FINDINGS: Cardiac silhouette:Body megaly. There are sternotomy wires. Prosthetic aortic valve is noted Aorta: Atherosclerosis Pulmonary vessels: Prominent. Costophrenic angles: Clear LUNGS: Patchy interstitial and alveolar opacities may represent edema or infiltrate. Aspiration canno t be excluded. Pneumothorax: None Osseous abnormalities: None IMPRESSION: 1. Cardiomegaly. Possible congestive heart failure. Correlate for superimposed pneumonia and/or aspir ation.
[2019-11-09] MEDS: Warfarin Sodium 2.5 MG TAB PO SCH (18:07)
[2019-11-09] MEDS: Atorvastatin Calcium 40 MG TAB PO SCH (21:34)
[2019-11-10] MEDS: Levothyroxine Sodium 100 MCG TAB PO SCH (05:23)
[2019-11-10] MEDS: Acetaminophen 325 MG TAB PO PRN ×3 (05:23→22:15)
[2019-11-10 06:13] LABS: #Eosinphils 0.1 thou/uL (0.0-0.7); #Lymphocytes 1.7 thou/uL (1.20-3.40); #Monocytes 0.7 thou/uL (0.11-0.59); %Basophils 0.3 % (0.0-1.0); %Lymphocytes 37.8 % (21.0-51.0); %Monocytes 14.7 % (0.0-10.0); %Neutrophils 44.1 % (42.0-75.0); Hemoglobin 10.9 g/dL (12.0-16.0); Mean Corpuscular HGB CONC 31.4 g/dL (32.0-36.0); Mean Corpuscular Hemoglobin 32.1 pg (27.0-31.0); Mean Platelet Volume 6.7 fL (7.4-10.4); Platelet Count 302 thou/uL (130-400); RBC Distribution Width 15.7 % (11.5-14.5); White Blood Cell (WBC) Count 4.5 thou/uL (4.8-10.8)
[2019-11-10 06:48] LABS: Anion Gap 9 mmol/L (10-20); BUN (Urea Nitrogen) 16 mg/dL (9.8-20.1); Calc. Creatinine Clearance 117 mL/min (70-130); Calcium 9.2 mg/dL (7.8-10.44); Carbon Dioxide 32 mmol/L (23-31); Chloride 100 mmol/L (98-107); Estimated GFR-MDRD 76; Glucose 128 mg/dL (83-110); Potassium 3.8 mmol/L (3.5-5.1); Sodium 137 mmol/L (136-145)
[2019-11-10 07:22] LABS: INR-International Normal Ratio 1.4; Prothrombin Time 16.9 sec (12.0-14.7)
[2019-11-10] MEDS: Furosemide 20 MG TAB PO SCH (08:13)
[2019-11-10] MEDS: metFORMIN 500 MG TAB PO SCH (08:13)
[2019-11-10] MEDS: Polyethylene Glycol 3350 17 GM Packet PO SCH ×2 (08:13→20:26)
[2019-11-10] MEDS: Enoxaparin Sodium 80 MG/0.8 ML SYRINGE SC SCH ×2 (08:13→20:27)
--- NOTE | 2019-11-10 08:47 | PDOC.HOSPP ---
- Subjective Encounter Date: 11/10/19 Encounter Time: 11:10 Subjective: Patient with improvement in her shortness of breath. She does continue to have drinks with straws at bedside in spite of speech therapy recommendations. - Objective Vital Signs & Weight: Vital Signs (12 hours) Temp Pulse Resp BP Pulse Ox 11/10/19 08:00 95 11/10/19 07:16 98.5 F 74 16 121/81 95 Weight Admit Weight 290 lb 8 oz Weight 290 lb 8 oz I&O: 11/09/19 11/10/19 11/11/19 06:59 06:59 06:59 Intake Total 960 1680 Output Total 700 Balance 260 1680 Result Diagrams: 11/10/19 05:46 11/10/19 05:46 Additional Labs: Accuchecks 11/10/19 11/09/19 11/09/19 05:26 23:25 19:29 POC Glucose 136 H 126 H 166 H 11/09/19 11/09/19 15:55 11:13 POC Glucose 165 H 133 H Hospitalist ROS - Review of Systems Constitutional: denies: fever, chills Respiratory: denies: cough, shortness of breath Cardiovascular: denies: chest pain, palpitations Gastrointestinal: denies: nausea, vomiting, abdominal pain - Medication Medications: Active Medications Generic Name Dose Route Start Last Admin Trade Name Freq PRN Reason Stop Dose Admin Acetaminophen 650 mg 11/05/19 03:53 11/10/19 05:23 Tylenol PO 650 mg Q4H PRN Administration Headache/Fever or Pain Atorvastatin Calcium 80 mg 11/06/19 21:00 11/09/19 21:34 Lipitor PO 80 mg HS SARTHAK Administration Enoxaparin Sodium 130 mg 11/05/19 21:00 11/10/19 08:13 Lovenox SC 130 mg Q12HR SARTHAK Administration Furosemide 20 mg 11/06/19 09:00 11/10/19 08:13 Lasix PO 20 mg DAILY SARTHAK Administration Insulin Human Lispro 0 units 11/03/19 10:31 11/05/19 17:36 Humalog SC 2 unit .MILD SLIDING SCALE PRN Administration Mild Correctional Scale Levothyroxine Sodium 100 mcg 11/04/19 06:00 11/10/19 05:23 Synthroid PO 100 mcg 0600 SARTHAK Administration Metformin HCl 500 mg 11/07/19 09:00 11/10/19 08:13 Glucophage PO 500 mg DAILY SARTHAK Administration Metoprolol Succinate 25 mg 11/07/19 09:00 11/10/19 08:13 Toprol Xl PO 25 mg DAILY SARTHAK Administration Polyethylene Glycol 17 gm 11/04/19 21:00 11/10/19 08:13 Miralax PO 17 gm BID SARTHAK Administration Warfarin Sodium 2.5 mg 11/09/19 17:00 11/09/19 18:07 Coumadin PO 2.5 mg 1700 SARTHAK Administration - Exam General Appearance: NAD, awake alert ENT: moist mucosa Heart: RRR, no murmur, no gallops, no rubs Respiratory: CTAB, no wheezes, no rales, no ronchi Gastrointestinal: soft, non-tender, non-distended, normal bowel sounds Psychiatric: normal affect, normal behavior, oriented to person, oriented to place Hosp A/P (1) Fecal impaction Code(s): K56.41 - FECAL IMPACTION Status: Resolved (2) UTI (urinary tract infection) Status: Ruled-out (3) Atrial fibrillation Code(s): I48.91 - UNSPECIFIED ATRIAL FIBRILLATION Status: Chronic (4) Status post mechanical aortic valve replacement Code(s): Z95.2 - PRESENCE OF PROSTHETIC HEART VALVE Status: Chronic (5) Diabetes mellitus Code(s): E11.9 - TYPE 2 DIABETES MELLITUS WITHOUT COMPLICATIONS Status: Chronic Qualifiers: Diabetes mellitus type: type 2 (6) Hypothyroidism Code(s): E03.9 - HYPOTHYROIDISM, UNSPECIFIED Status: Chronic (7) Morbid obesity Code(s): E66.01 - MORBID (SEVERE) OBESITY DUE TO EXCESS CALORIES Status: Chronic (8) Wound of right leg Code(s): S81.801A - UNSPECIFIED OPEN WOUND, RIGHT LOWER LEG, INITIAL ENCOUNTER Status: Chronic - Plan Presenting sx of fecal impaction/stercoral colitis resolved - appreciate GI consult - continue scheduled bowel meds- Miralax BID, prn Senna, if no BM for 3-4 days can give dose of MOM, had stool today Mechanical aortic valve - INR remains below 2 inspite of increase to 2.5 mg yesterday, on Lovenox until between 2.5-3.5, Pharmacy managing, cautiously increasing Warfarin since has been supratherapeutic on lower doses. A Fib - restarting coumadin, full dose Lovenox until INR above 2.5, restarted home Metoprolol XL for intermittently elevated rate DM type 2 - normal renal function, resumed Metformin RLE wound - continue wound vac and f/u in outpatient setting UTI - follow culture - appreciate eval by Dr. Kirk/Urology, no growth at 48 hours, antibiotics d/c'd Dysphagia- Speech has given recs Cough and SOB- possibly aspiration 11/08/2019, CBC without leukocytosis, CXR with bilateral mild hazy markings, possibly CHF but cannot rule out aspiration, will check BNP, hold on antibiotics for now. dvt prophy - not indicated, on coumadin and Lovenox gi prophy - not indicated code status full reviewed plan of care with patient, no questions or further needs at end of eval
[2019-11-10] MEDS: Warfarin Sodium 2.5 MG TAB PO SCH (16:54)
[2019-11-10] MEDS: Atorvastatin Calcium 40 MG TAB PO SCH (20:26)
[2019-11-11] MEDS: Levothyroxine Sodium 100 MCG TAB PO SCH (05:32)
[2019-11-11 06:30] LABS: Anion Gap 10 mmol/L (10-20); BUN (Urea Nitrogen) 15 mg/dL (9.8-20.1); Calc. Creatinine Clearance 124 mL/min (70-130); Calcium 9.2 mg/dL (7.8-10.44); Carbon Dioxide 30 mmol/L (23-31); Chloride 100 mmol/L (98-107); Estimated GFR-MDRD 81; Glucose 115 mg/dL (83-110); Potassium 3.9 mmol/L (3.5-5.1); Sodium 136 mmol/L (136-145)
[2019-11-11 06:47] LABS: #Eosinphils 0.2 thou/uL (0.0-0.7); #Lymphocytes 1.9 thou/uL (1.20-3.40); #Monocytes 0.7 thou/uL (0.11-0.59); %Basophils 0.5 % (0.0-1.0); %Eosinophils 3.8 % (0.0-10.0); %Lymphocytes 39.6 % (21.0-51.0); %Monocytes 13.9 % (0.0-10.0); %Neutrophils 42.2 % (42.0-75.0); Hemoglobin 11.2 g/dL (12.0-16.0); Mean Corpuscular HGB CONC 31.6 g/dL (32.0-36.0); Mean Corpuscular Hemoglobin 32.6 pg (27.0-31.0); Mean Platelet Volume 7.1 fL (7.4-10.4); Platelet Count 257 thou/uL (130-400); RBC Distribution Width 15.3 % (11.5-14.5); Red Blood Cell (RBC) Count 3.45 mill/uL (4.20-5.40); White Blood Cell (WBC) Count 4.8 thou/uL (4.8-10.8)
[2019-11-11] MEDS: Furosemide 20 MG TAB PO SCH (08:16)
[2019-11-11] MEDS: metFORMIN 500 MG TAB PO SCH (08:16)
[2019-11-11] MEDS: Polyethylene Glycol 3350 17 GM Packet PO SCH ×2 (08:16→21:22)
[2019-11-11] MEDS: Enoxaparin Sodium 80 MG/0.8 ML SYRINGE SC SCH ×2 (08:17→20:48)
[2019-11-11] MEDS: Acetaminophen 325 MG TAB PO PRN ×2 (08:25→14:30)
--- NOTE | 2019-11-11 11:24 | PDOC.HOSPP ---
- Subjective Encounter Date: 11/11/19 Encounter Time: 12:10 Subjective: Patient without specific complaints. Has not recognized me each day and can't remember her recent medical history/hospitalization but good remembering things that have happened in the past including dates that things have happened in the past. Spoke with daughter and she stated this seemed her recent baseline. - Objective Vital Signs & Weight: Vital Signs (12 hours) Temp Pulse Resp BP Pulse Ox 11/11/19 08:00 98.1 F 56 L 17 124/75 95 Weight Admit Weight 290 lb 8 oz Weight 290 lb 8 oz I&O: 11/10/19 11/11/19 11/12/19 06:59 06:59 06:59 Intake Total 1680 960 600 Balance 1680 960 600 Result Diagrams: 11/11/19 06:06 11/11/19 06:06 Additional Labs: Accuchecks 11/11/19 11/10/19 11/10/19 05:28 20:24 15:52 POC Glucose 120 H 144 H 162 H 11/10/19 12:05 POC Glucose 165 H Hospitalist ROS - Review of Systems Constitutional: denies: fever, chills Respiratory: denies: cough, shortness of breath Cardiovascular: denies: chest pain, palpitations, orthopnea Gastrointestinal: reports: diarrhea (a little loose). denies: nausea, vomiting , abdominal pain, constipation Genitourinary: denies: dysuria - Medication Medications: Active Medications Generic Name Dose Route Start Last Admin Trade Name Freq PRN Reason Stop Dose Admin Acetaminophen 650 mg 11/05/19 03:53 11/11/19 08:25 Tylenol PO 650 mg Q4H PRN Administration Headache/Fever or Pain Atorvastatin Calcium 80 mg 11/06/19 21:00 11/10/19 20:26 Lipitor PO 80 mg HS SARTHAK Administration Enoxaparin Sodium 130 mg 11/05/19 21:00 11/11/19 08:17 Lovenox SC 130 mg Q12HR SARTHAK Administration Furosemide 20 mg 11/06/19 09:00 11/11/19 08:16 Lasix PO 20 mg DAILY SARTHAK Administration Insulin Human Lispro 0 units 11/03/19 10:31 11/05/19 17:36 Humalog SC 2 unit .MILD SLIDING SCALE PRN Administration Mild Correctional Scale Levothyroxine Sodium 100 mcg 11/04/19 06:00 11/11/19 05:32 Synthroid PO 100 mcg 0600 SARTHAK Administration Metformin HCl 500 mg 11/07/19 09:00 11/11/19 08:16 Glucophage PO 500 mg DAILY SARTHAK Administration Metoprolol Succinate 25 mg 11/07/19 09:00 11/11/19 08:16 Toprol Xl PO 25 mg DAILY SARTHAK Administration Polyethylene Glycol 17 gm 11/04/19 21:00 11/11/19 08:16 Miralax PO 17 gm BID SARTHAK Administration Warfarin Sodium 2.5 mg 11/09/19 17:00 11/10/19 16:54 Coumadin PO 2.5 mg 1700 SARTHAK Administration - Exam General Appearance: NAD, awake alert ENT: moist mucosa Heart: RRR, no murmur, no gallops Respiratory: CTAB, no wheezes, no rales, no ronchi Gastrointestinal: soft, non-tender, non-distended, normal bowel sounds Psychiatric: normal affect, normal behavior, oriented to person, oriented to place. negative: oriented to time Hosp A/P (1) Fecal impaction Code(s): K56.41 - FECAL IMPACTION Status: Resolved (2) UTI (urinary tract infection) Status: Ruled-out (3) Atrial fibrillation Code(s): I48.91 - UNSPECIFIED ATRIAL FIBRILLATION Status: Chronic (4) Status post mechanical aortic valve replacement Code(s): Z95.2 - PRESENCE OF PROSTHETIC HEART VALVE Status: Chronic (5) Diabetes mellitus Code(s): E11.9 - TYPE 2 DIABETES MELLITUS WITHOUT COMPLICATIONS Status: Chronic Qualifiers: Diabetes mellitus type: type 2 (6) Hypothyroidism Code(s): E03.9 - HYPOTHYROIDISM, UNSPECIFIED Status: Chronic (7) Morbid obesity Code(s): E66.01 - MORBID (SEVERE) OBESITY DUE TO EXCESS CALORIES Status: Chronic (8) Wound of right leg Code(s): S81.801A - UNSPECIFIED OPEN WOUND, RIGHT LOWER LEG, INITIAL ENCOUNTER Status: Chronic - Plan Presenting sx of fecal impaction/stercoral colitis resolved - appreciate GI consult - continue scheduled bowel meds- Miralax BID, prn Senna, if no BM for 3-4 days can give dose of MOM, had stool today Mechanical aortic valve - INR remains below 2 inspite of increase to 2.5 mg, INR today pending, on Lovenox until between 2.5-3.5, Pharmacy managing, cautiously increasing Warfarin since has been supratherapeutic on lower doses. A Fib - restarting coumadin, full dose Lovenox until INR above 2.5, restarted home Metoprolol XL for intermittently elevated rate DM type 2 - normal renal function, resumed Metformin RLE wound - continue wound vac and f/u in outpatient setting UTI - follow culture - appreciate eval by Dr. Kirk/Urology, no growth at 48 hours, antibiotics d/c'd Dysphagia- Speech has given recs Cough and SOB- possibly aspiration 11/08/2019, CBC without leukocytosis, CXR with bilateral mild hazy markings, possibly CHF but cannot rule out aspiration, BNP minimally elevated and no leukocytosis developing. Off O2 NC. No antibiotics as no evidence infection at this time and improving. dvt prophy - not indicated, on coumadin and Lovenox gi prophy - not indicated code status full reviewed plan of care with patient, no questions or further needs at end of eval
[2019-11-11 11:52] LABS: INR-International Normal Ratio 1.5; Prothrombin Time 18.5 sec (12.0-14.7)
[2019-11-11] MEDS ORDERED: Warfarin Sodium 3 MG TAB PO SCH (17:00)
[2019-11-11] MEDS: Atorvastatin Calcium 40 MG TAB PO SCH (20:49)
[2019-11-12] MEDS: Levothyroxine Sodium 100 MCG TAB PO SCH (05:59)
[2019-11-12 06:04] LABS: INR-International Normal Ratio 1.5; Prothrombin Time 18.2 sec (12.0-14.7)
[2019-11-12] MEDS: metFORMIN 500 MG TAB PO SCH (08:20)
[2019-11-12] MEDS: Enoxaparin Sodium 80 MG/0.8 ML SYRINGE SC SCH ×2 (08:21→20:18)
[2019-11-12] MEDS: Furosemide 20 MG TAB PO SCH (08:21)
[2019-11-12] MEDS: Polyethylene Glycol 3350 17 GM Packet PO SCH ×2 (08:36→20:27)
--- NOTE | 2019-11-12 13:49 | PDOC.HOSPP ---
- Subjective Encounter Date: 11/12/19 Subjective: Pt denies any complaint. - Objective Vital Signs & Weight: Vital Signs (12 hours) Temp Pulse Resp BP BP Pulse Ox 11/12/19 08:00 98.3 F 90 17 127/71 97 11/12/19 07:33 97.8 F 83 15 110/70 96 Weight Admit Weight 290 lb 8 oz Weight 290 lb 8 oz I&O: 11/11/19 11/12/19 11/13/19 06:59 06:59 06:59 Intake Total 960 650 840 Output Total 1200 Balance 960 -550 840 Result Diagrams: 11/11/19 06:06 11/11/19 06:06 Additional Labs: Accuchecks 11/12/19 11/11/19 11/11/19 11:28 20:14 16:05 POC Glucose 132 H 173 H 135 H Hospitalist ROS - Review of Systems Constitutional: denies: fever, chills, sweats, weakness, malaise, other Eyes: denies: pain, vision change, conjunctivae inflammation, eyelid inflammation, redness, other ENT: denies: ear pain, ear discharge, nose pain, nose discharge, nose congestion , mouth pain, mouth swelling, throat pain, throat swelling, other Respiratory: denies: cough, dry, shortness of breath, hemoptysis, SOB with excertion, pleuritic pain, sputum, wheezing, other Cardiovascular: denies: chest pain, palpitations, orthopnea, paroxysmal noc. dyspnea, edema, light headedness, other Gastrointestinal: denies: nausea, vomiting, abdominal pain, diarrhea, constipation, melena, hematochezia, other Genitourinary: denies: dysuria, frequency, incontinence, hematuria, retention, other Musculoskeletal: denies: neck pain, shoulder pain, arm pain, back pain, hand pain, leg pain, foot pain, other Skin: reports: lesions Neurological: denies: weakness, numbness, incoordination, change in speech, confusion, seizures, other - Medication Medications: Active Medications Generic Name Dose Route Start Last Admin Trade Name Freq PRN Reason Stop Dose Admin Acetaminophen 650 mg 11/05/19 03:53 11/11/19 14:30 Tylenol PO 650 mg Q4H PRN Administration Headache/Fever or Pain Atorvastatin Calcium 80 mg 11/06/19 21:00 11/11/19 20:49 Lipitor PO 80 mg HS SARTHAK Administration Enoxaparin Sodium 130 mg 11/05/19 21:00 11/12/19 08:21 Lovenox SC 130 mg Q12HR SARTHAK Administration Furosemide 20 mg 11/06/19 09:00 11/12/19 08:21 Lasix PO 20 mg DAILY SARTHAK Administration Insulin Human Lispro 0 units 11/03/19 10:31 11/05/19 17:36 Humalog SC 2 unit .MILD SLIDING SCALE PRN Administration Mild Correctional Scale Levothyroxine Sodium 100 mcg 11/04/19 06:00 11/12/19 05:59 Synthroid PO 100 mcg 0600 SARTHAK Administration Metformin HCl 500 mg 11/07/19 09:00 11/12/19 08:20 Glucophage PO 500 mg DAILY SARTHAK Administration Metoprolol Succinate 25 mg 11/07/19 09:00 11/12/19 08:21 Toprol Xl PO 25 mg DAILY SARTHAK Administration Polyethylene Glycol 17 gm 11/04/19 21:00 11/12/19 08:36 Miralax PO Not Given BID [facility] Warfarin Sodium 3 mg 11/11/19 17:00 11/11/19 18:53 Coumadin PO 3 mg 1700 SARTHAK Administration - Exam General Appearance: awake alert Eye: PERRL, anicteric sclera ENT: normocephalic atraumatic, moist mucosa Neck: supple, symmetric, no JVD, no thyromegaly, no lymphadenopathy Heart: RRR, no murmur, no gallops, no rubs Respiratory: CTAB, no wheezes, no rales, no ronchi Gastrointestinal: soft, non-tender, non-distended, normal bowel sounds Extremities: no cyanosis, no clubbing, no edema Skin: no lesions, no rashes Neurological: cranial nerve grossly intact, no weakness Musculoskeletal: normal tone, normal strength Psychiatric: normal affect, normal behavior, A&O x 3 Hosp A/P (1) Constipation Code(s): K59.00 - CONSTIPATION, UNSPECIFIED Status: Acute Plan: Resolved. Pt has had several BM. (2) UTI (urinary tract infection) Status: Acute Qualifiers: Urinary tract infection type: acute cystitis Hematuria presence: without hematuria Qualified Code(s): N30.00 - Acute cystitis without hematuria Plan: Cont current abx, f/u w Cx results. (3) Atrial fibrillation Code(s): I48.91 - UNSPECIFIED ATRIAL FIBRILLATION Status: Chronic Plan: Rate controlled. INR is still not optimal, will increase Coumadin dose. Cont to monitor INR. (4) Diabetes mellitus Code(s): E11.9 - TYPE 2 DIABETES MELLITUS WITHOUT COMPLICATIONS Status: Chronic Qualifiers: Diabetes mellitus type: type 2 Diabetes mellitus terminal gauger supervisor insulin use: without senior care use Diabetes mellitus complication status: without complication Qualified Code(s): E11.9 - Type 2 diabetes mellitus without complications Plan: Controlled, cont Metfomin, cover with SSI. (5) Hypothyroidism Code(s): E03.9 - HYPOTHYROIDISM, UNSPECIFIED Status: Chronic Qualifiers: Hypothyroidism type: unspecified Qualified Code(s): E03.9 - Hypothyroidism , unspecified Plan: Stable, cont Synthroid. (6) Wound of right leg Code(s): S81.801A - UNSPECIFIED OPEN WOUND, RIGHT LOWER LEG, INITIAL ENCOUNTER Status: Chronic Plan: Stable. Cont wound care as indicted. - Plan PPx: Coumadin. CODE: FULL. Dispo: cont to monitor INR. Needs to be > or = 2.5 at d/c.
[2019-11-12] MEDS: Warfarin Sodium 5 MG TAB PO SCH (16:22)
[2019-11-12] MEDS: Acetaminophen 325 MG TAB PO PRN (17:44)
[2019-11-12] MEDS: Atorvastatin Calcium 40 MG TAB PO SCH (20:18)
[2019-11-13] MEDS: Acetaminophen 325 MG TAB PO PRN ×4 (04:10→23:34)
[2019-11-13] MEDS: Levothyroxine Sodium 100 MCG TAB PO SCH (05:53)
[2019-11-13 06:02] LABS: #Basophils 0.1 thou/uL (0.0-0.2); #Eosinphils 0.2 thou/uL (0.0-0.7); #Monocytes 0.8 thou/uL (0.11-0.59); #Neutrophils 3.1 thou/uL (1.40-6.50); %Basophils 0.9 % (0.0-1.0); %Eosinophils 2.9 % (0.0-10.0); %Lymphocytes 32.8 % (21.0-51.0); %Monocytes 12.9 % (0.0-10.0); %Neutrophils 50.5 % (42.0-75.0); Hemoglobin 10.8 g/dL (12.0-16.0); Mean Corpuscular HGB CONC 31.5 g/dL (32.0-36.0); Mean Corpuscular Hemoglobin 31.8 pg (27.0-31.0); Mean Platelet Volume 6.9 fL (7.4-10.4); Platelet Count 310 thou/uL (130-400); RBC Distribution Width 15.5 % (11.5-14.5); White Blood Cell (WBC) Count 6.1 thou/uL (4.8-10.8)
[2019-11-13 06:04] LABS: INR-International Normal Ratio 1.8; Prothrombin Time 20.9 sec (12.0-14.7)
[2019-11-13 06:22] LABS: Anion Gap 13 mmol/L (10-20); BUN (Urea Nitrogen) 20 mg/dL (9.8-20.1); Calc. Creatinine Clearance 130 mL/min (70-130); Carbon Dioxide 26 mmol/L (23-31); Chloride 100 mmol/L (98-107); Estimated GFR-MDRD 85; Glucose 141 mg/dL (83-110); Potassium 3.5 mmol/L (3.5-5.1); Sodium 135 mmol/L (136-145)
[2019-11-13] MEDS: metFORMIN 500 MG TAB PO SCH (08:28)
[2019-11-13] MEDS: Furosemide 20 MG TAB PO SCH (08:29)
[2019-11-13] MEDS: Enoxaparin Sodium 80 MG/0.8 ML SYRINGE SC SCH (08:29)
[2019-11-13] MEDS: Polyethylene Glycol 3350 17 GM Packet PO SCH ×2 (08:32→22:01)
--- NOTE | 2019-11-13 11:52 | PDOC.HOSPP ---
- Subjective Encounter Date: 11/13/19 Encounter Time: 11:50 Subjective: rambling verbalization. pleasant - Objective Vital Signs & Weight: Vital Signs (12 hours) Temp Pulse Resp BP BP Pulse Ox 11/13/19 11:28 97.3 F L 84 20 110/73 96 11/13/19 07:54 97.6 F 88 16 108/81 97 Weight Admit Weight 290 lb 8 oz Weight 290 lb 8 oz I&O: 11/12/19 11/13/19 11/14/19 06:59 06:59 06:59 Intake Total 650 1860 Output Total 1200 750 Balance -550 1110 Result Diagrams: 11/13/19 05:45 11/13/19 05:45 Additional Labs: Accuchecks 11/13/19 11/12/19 11/12/19 05:53 20:21 17:10 POC Glucose 145 H 125 H 145 H 11/12/19 11:28 POC Glucose 132 H Hospitalist ROS - Medication Medications: Active Medications Generic Name Dose Route Start Last Admin Trade Name Freq PRN Reason Stop Dose Admin Acetaminophen 650 mg 11/05/19 03:53 11/13/19 08:31 Tylenol PO 650 mg Q4H PRN Administration Headache/Fever or Pain Atorvastatin Calcium 80 mg 11/06/19 21:00 11/12/19 20:18 Lipitor PO 80 mg HS SARTHAK Administration Enoxaparin Sodium 130 mg 11/05/19 21:00 11/13/19 08:29 Lovenox SC 130 mg Q12HR SARTHAK Administration Furosemide 20 mg 11/06/19 09:00 11/13/19 08:29 Lasix PO 20 mg DAILY SARTHAK Administration Insulin Human Lispro 0 units 11/03/19 10:31 11/05/19 17:36 Humalog SC 2 unit .MILD SLIDING SCALE PRN Administration Mild Correctional Scale Levothyroxine Sodium 100 mcg 11/04/19 06:00 11/13/19 05:53 Synthroid PO 100 mcg 0600 SARTHAK Administration Metformin HCl 500 mg 11/07/19 09:00 11/13/19 08:28 Glucophage PO 500 mg DAILY SARTHAK Administration Metoprolol Succinate 25 mg 11/07/19 09:00 11/13/19 08:37 Toprol Xl PO 25 mg DAILY SARTHAK Administration Polyethylene Glycol 17 gm 11/04/19 21:00 11/13/19 08:32 Miralax PO 17 gm BID SARTHAK Administration Warfarin Sodium 5 mg 11/12/19 17:00 11/12/19 16:22 Coumadin PO 5 mg 1700 SARTHAK Administration - Exam General Appearance: awake alert Neck: no JVD Heart: no murmur, irregular Heart - other findings: crisp valve clicks Respiratory: CTAB Gastrointestinal: soft, non-tender, normal bowel sounds Extremities: 1+ LE edema Hosp A/P (1) Anticoagulant long-term use Code(s): Z79.01 - CUSTODIAL (CURRENT) USE OF ANTICOAGULANTS Status: Chronic (2) H/O prosthetic aortic valve replacement Code(s): Z95.2 - PRESENCE OF PROSTHETIC HEART VALVE Status: Chronic (3) Atrial fibrillation Code(s): I48.91 - UNSPECIFIED ATRIAL FIBRILLATION Status: Chronic Qualifiers: Atrial fibrillation type: unspecified Qualified Code(s): I48.91 - Unspecified atrial fibrillation (4) Diabetes mellitus Code(s): E11.9 - TYPE 2 DIABETES MELLITUS WITHOUT COMPLICATIONS Status: Chronic Qualifiers: Diabetes mellitus type: type 2 Diabetes mellitus long-term insulin use: without long-term use Diabetes mellitus complication status: without complication Qualified Code(s): E11.9 - Type 2 diabetes mellitus without complications (5) Hypothyroidism Code(s): E03.9 - HYPOTHYROIDISM, UNSPECIFIED Status: Chronic Qualifiers: Hypothyroidism type: unspecified Qualified Code(s): E03.9 - Hypothyroidism , unspecified (6) Wound of right leg Code(s): S81.801A - UNSPECIFIED OPEN WOUND, RIGHT LOWER LEG, INITIAL ENCOUNTER Status: Chronic Qualifiers: Encounter type: subsequent encounter Qualified Code(s): S81.801D - Unspecified open wound, right lower leg, subsequent encounter - Plan cont warfarin, daily cont wound vac PT/INR-target INR2.5- 3.5 cont metformin, metoprolol cont miralax bid
[2019-11-13] MEDS: Warfarin Sodium 5 MG TAB PO SCH (16:26)
--- NOTE | 2019-11-13 17:11 | PDOC.EVN ---
Event Note - Event Note Event Note: HEMATOMA ON ARM EXPANDING. MORBIDLY OBESE ON HIGH DOSE LOVENOX. dc LOVENOX. DISCUSSED WITH PHARMACIST. HOLD LOVEOX CHECK pt TONITE AND IN am
[2019-11-13 17:41] LABS: INR-International Normal Ratio 1.9
[2019-11-13 17:42] LABS: PTT 59.4 sec (22.9-36.1)
[2019-11-13] MEDS: Atorvastatin Calcium 40 MG TAB PO SCH (23:34)
[2019-11-14 05:36] LABS: INR-International Normal Ratio 2.2; Prothrombin Time 24.4 sec (12.0-14.7)
[2019-11-14] MEDS: Acetaminophen 325 MG TAB PO PRN ×3 (05:52→21:12)
[2019-11-14] MEDS: Levothyroxine Sodium 100 MCG TAB PO SCH (05:53)
[2019-11-14] MEDS: metFORMIN 500 MG TAB PO SCH (09:00)
[2019-11-14] MEDS: Furosemide 20 MG TAB PO SCH (09:00)
[2019-11-14] MEDS: Polyethylene Glycol 3350 17 GM Packet PO SCH ×2 (09:01→21:12)
--- NOTE | 2019-11-14 11:35 | PDOC.HOSPP ---
- Subjective Encounter Date: 11/14/19 Encounter Time: 11:34 Subjective: wants to go home - Objective Vital Signs & Weight: Vital Signs (12 hours) Temp Pulse Resp BP BP Pulse Ox 11/14/19 08:45 94 L 11/14/19 07:39 97.5 F L 91 17 102/69 94 L 11/14/19 05:10 97.9 F 91 19 111/75 93 L 11/14/19 00:15 98.5 F 86 20 105/68 98 Weight Admit Weight 290 lb 8 oz Weight 290 lb 8 oz I&O: 11/13/19 11/14/19 11/15/19 06:59 06:59 06:59 Intake Total 1860 2310 Output Total 750 1150 Balance 1110 1160 Result Diagrams: 11/13/19 05:45 11/13/19 05:45 Additional Labs: Accuchecks 11/14/19 11/13/19 11/13/19 04:31 19:35 16:15 POC Glucose 120 H 142 H 133 H 11/13/19 11:36 POC Glucose 139 H Hospitalist ROS - Medication Medications: Active Medications Generic Name Dose Route Start Last Admin Trade Name Freq PRN Reason Stop Dose Admin Acetaminophen 650 mg 11/05/19 03:53 11/14/19 05:52 Tylenol PO 650 mg Q4H PRN Administration Headache/Fever or Pain Atorvastatin Calcium 80 mg 11/06/19 21:00 11/13/19 23:34 Lipitor PO 80 mg HS SARTHAK Administration Furosemide 20 mg 11/06/19 09:00 11/14/19 09:00 Lasix PO 20 mg DAILY SARTHAK Administration Insulin Human Lispro 0 units 11/03/19 10:31 11/05/19 17:36 Humalog SC 2 unit .MILD SLIDING SCALE PRN Administration Mild Correctional Scale Levothyroxine Sodium 100 mcg 11/04/19 06:00 11/14/19 05:53 Synthroid PO 100 mcg 0600 SARTHAK Administration Metformin HCl 500 mg 11/07/19 09:00 11/14/19 09:00 Glucophage PO 500 mg DAILY SARTHAK Administration Metoprolol Succinate 25 mg 11/07/19 09:00 11/14/19 08:59 Toprol Xl PO 25 mg DAILY SARTHAK Administration Polyethylene Glycol 17 gm 11/04/19 21:00 11/14/19 09:01 Miralax PO Not Given BID [facility] Warfarin Sodium 5 mg 11/12/19 17:00 11/13/19 16:26 Coumadin PO 5 mg 1700 [facility] Administration - Exam General Appearance: awake alert Neck: no JVD Heart: irregular Respiratory: CTAB Gastrointestinal: soft, normal bowel sounds Extremities: 1+ LE edema Hosp A/P (1) Anticoagulant long-term use Code(s): Z79.01 - MANAGER EMS (CURRENT) USE OF ANTICOAGULANTS Status: Chronic (2) H/O prosthetic aortic valve replacement Code(s): Z95.2 - PRESENCE OF PROSTHETIC HEART VALVE Status: Chronic (3) Atrial fibrillation Code(s): I48.91 - UNSPECIFIED ATRIAL FIBRILLATION Status: Chronic Qualifiers: Atrial fibrillation type: unspecified Qualified Code(s): I48.91 - Unspecified atrial fibrillation (4) Diabetes mellitus Code(s): E11.9 - TYPE 2 DIABETES MELLITUS WITHOUT COMPLICATIONS Status: Chronic Qualifiers: Diabetes mellitus type: type 2 Diabetes mellitus termite technician insulin use: without termite technician use Diabetes mellitus complication status: without complication Qualified Code(s): E11.9 - Type 2 diabetes mellitus without complications (5) Hypothyroidism Code(s): E03.9 - HYPOTHYROIDISM, UNSPECIFIED Status: Chronic Qualifiers: Hypothyroidism type: unspecified Qualified Code(s): E03.9 - Hypothyroidism , unspecified (6) Wound of right leg Code(s): S81.801A - UNSPECIFIED OPEN WOUND, RIGHT LOWER LEG, INITIAL ENCOUNTER Status: Chronic Qualifiers: Encounter type: subsequent encounter Qualified Code(s): S81.801D - Unspecified open wound, right lower leg, subsequent encounter - Plan cont warfarin, daily cont wound vac PT/INR-target INR2.5- 3.5, now 2.2 cont metformin, metoprolol cont miralax bid
[2019-11-14] MEDS: Warfarin Sodium 5 MG TAB PO SCH (16:49)
[2019-11-14] MEDS: Atorvastatin Calcium 40 MG TAB PO SCH (21:12)
[2019-11-15] MEDS: Acetaminophen 325 MG TAB PO PRN (05:53)
[2019-11-15] MEDS: Levothyroxine Sodium 100 MCG TAB PO SCH (05:53)
[2019-11-15 07:10] VITALS: TEMP 98
[2019-11-15 08:05] LABS: INR-International Normal Ratio 2.6; Prothrombin Time 27.6 sec (12.0-14.7)
[2019-11-15] MEDS: Polyethylene Glycol 3350 17 GM Packet PO SCH (09:23)
[2019-11-15] MEDS: metFORMIN 500 MG TAB PO SCH (09:23)
[2019-11-15] MEDS: Furosemide 20 MG TAB PO SCH (09:23)
--- NOTE | 2019-11-15 09:32 | DIS ---
DATE OF ADMISSION: 11/02/2019 DATE OF DISCHARGE: 11/15/2019 PRIMARY CARE PROVIDER: Abhishek Sykes DO DISPOSITION: Discharged to private residence. FINAL DIAGNOSES: Atrial fibrillation; prosthetic aortic valve mechanical; long-term anticoagulation; fecal impaction; urinary retention; right leg wound, status post I and D in September; urinary tract infection; diabetes mellitus type 2; hyperthyroidism; morbid obesity. DISCHARGE MEDICATIONS: 1. Coumadin 5 mg p.o. daily at 1700 hours. 2. MiraLAX 17 g p.o. b.i.d. 3. Levothyroxine 100 mcg a day. 4. Metoprolol 25 mg daily. 5. BuSpar 5 mg daily. 6. Metformin 500 mg daily. 7. Lipitor 80 mg daily. 8. Symbicort 80/4.5 one puff b.i.d. p.r.n. 9. Lasix 20 mg daily. ALLERGIES: NO KNOWN MEDICAL ALLERGIES. DIET: Diabetic. CODE STATUS: Full. PENDING AT TIME OF DISCHARGE: Nothing. CONSULTATIONS: During her hospital stay, Dr. Dawit Clark, General Surgery on 11/03/2019; Dr. Landon Young, on 11/03/2019, Gastroenterology; Dr. Nav Kirk, Genitourinary on 11/03/2019. HOSPITAL COURSE: The patient admitted to [facility] to the Hospitalist Service with history of atrial fib, mechanical aortic valve, Coumadin. The patient had colicky perianal pain. She had been recently discharged after right leg wound debridement with wound VAC. Her initial laboratory; abdomen and pelvis CT, large fecal material in the colon suggesting impaction. Laboratory; her PT/INR was elevated at 4.5. Her anticoagulation was stopped. White count was 5.4, hemoglobin 11.6, platelet count 293,000. Comprehensive metabolic profile essentially normal except for sodium of 135, which was later normalized. COVID was negative. Urine culture done was no growth. Dr. Clark recommended laxatives and enemas. The patient's impaction resolved. She was subsequently put back on Coumadin with a target of 2.5 to 3.5, despite the fact that she was markedly elevated at 4.5 and 4.1 on admission. Her Coumadin dose had to be increased to eventually get her up to therapeutic 2.6, which she is at now. Blood sugars have been monitored and been stable in the 100 to 200 range. Her CBC has been stable. She currently has normal vital signs except for her irregular pulse. Cardiorespiratory exam is normal. She is being discharged on Home Health with wound care and blood draws for PT/INR first to be done in 3 days. Follow up with Dr. Sykes in 3 to 7 days. She will need a ProTime checked about once a week for the next month at least because of her current liability of her dose. 40 minutes was spent preparing this discharge. Job ID: [id number]
[2019-11-15 13:23] VITALS: BP 112/74
--- NOTE | 2019-11-17 05:32 | PQF ---
Dear : Ivana Lin Date / Time: 11/17/2019 Please exercise your independent, professional judgment in responding to the clarification form. Clinical indicators are provided on the bottom of this form for your review Can you please further clarify the diagnosis of the patient? Please check appropriate box(es): [ ] Associated Diagnosis: Pneumonia Please specify type: [ ] Aspiration Pneumonia [ ] Pneumonia unspecified [ ] Not clinically significant radiological findings [ x ] Other diagnosis please specify_no evidence of pneumonia clinically __ [ ] Unable to determine In addition, please specify: Present on Admission (POA): [ ] Yes [ x] No [ ] Unable to determine Physician Signature: Date/Time: For continuity of documentation, please document condition throughout progress notes and discharge summary. Thank You. To be completed by CDI/Coding staff for physician review: Present Clinical Indicators - Signs / Symptoms / Labs Results and Location in Medical Record [ x ] Patchy interstitial and alveolar opacities may represent edema or infiltrate Chest X ray 11/08 pg.1 [ x ] Aspiration cannot be excluded Chest X ray 11/08 pg.1 [ x ] Superimposed pneumonia and/or aspiration Chest X ray 11/08 pg.1 [ x ] Possibly dysphagia Hospitalist PN pg.4 11/07 [ x ] Patient has had some cough and mild SOB since coughing of food yesterday Hospitalist PN pg.1 11/08 [ x ] Cough and SOB-possibly aspiration yesterday Hospitalist PN pg.5 11/08 [ x ] WBC: 11/01=5.9 11/07=4.9 11/10=4.8 11/12=6.1 Labs 11/01 Present Risk Factors Results and Location in Medical Record [ x ] 84 years old H and P pg.1 [ x ] Dysphagia Hospitalist PN pg.4 11/07 [ x ] Obesity H and P pg.1 [ x ] DM H and P pg.1 Present Treatments Results and Location in Medical Record [ x ] Chest X ray 11/08 [ x ] IV Fluids MAR [ x ] Speech therapy consult Hospitalist PN pg.1 11/08 [ x ] Mometasone 100/5 2 puff INH MAR [ x ] Levaquin 500mg Oral MAY 20 CDS/Front End Assistant Signature: John Machado Phone #: [phone] Date: 11/17/19 This is a permanent part of the Medical Record [facility]
== END 2019-11-15 13:26 | disposition home health service (06) | DRG 389 ==
LOC: ERS 14:35 → OBSVTOIN 17:20 → T4-B 17:20
PROVIDERS: ADMIT Student in an Organized Health Care Education/Training Program; ATTEND Student in an Organized Health Care Education/Training Program
PROC: 3E1H78Z Irrigation of Lower GI using Irrigating Substance, Via Natural or Artificial Opening (ICD-10-PCS; principal; 2019-11-02)
PROC: 0T9B70Z Drainage of Bladder with Drainage Device, Via Natural or Artificial Opening (ICD-10-PCS; 2019-11-03)
DX: K56.41 Fecal impaction (principal); N39.0 Urinary tract infection, site not specified; Z68.42 Body mass index [BMI] 45.0-49.9, adult; I48.20 Chronic atrial fibrillation, unspecified; Z51.5 Encounter for palliative care; Z20.828 Contact with and (suspected) exposure to other viral communicable diseases; K52.89 Other specified noninfective gastroenteritis and colitis; E11.9 Type 2 diabetes mellitus without complications; E66.01 Morbid (severe) obesity due to excess calories; E05.90 Thyrotoxicosis, unspecified without thyrotoxic crisis or storm; E03.9 Hypothyroidism, unspecified; R33.9 Retention of urine, unspecified; Z95.2 Presence of prosthetic heart valve; Z91.040 Latex allergy status; Z79.899 Other long term (current) drug therapy; Z79.01 Long term (current) use of anticoagulants; Z79.51 Long term (current) use of inhaled steroids; Z91.14 Patient's other noncompliance with medication regimen; R13.10 Dysphagia, unspecified; S81.801D Unspecified open wound, right lower leg, subsequent encounter
CPT/HCPCS: 36415; 36416; 71045; 74177; 80048; 80053; 81001; 83036; 83690; 83735; 83880; 84100; 85025; 85610; 85730; 87086; 87635; 93005; 93010; 96374; G0378; J1630; J1650; J3010; Q9967; U0003